=== PATIENT | male | born 1955 | race Caucasian/White ===

== ENCOUNTER 2016-10-03 03:35 | Emergency (ER) | payer OTHER ==
[~2016-10-03] VITALS: Ht 170.2 cm; Wt 77.1 kg
[~2016-10-03 03:35] MED LIST: ALBU6.7H IH; ASPI81TA2 PO; ATOR40TA PO; FLUT1DIS5 IH; LEVO500T15 PO; Valsartan PO
[2016-10-03 05:22] VITALS: BP 130/68
== END 2016-10-03 05:22 | disposition home or self-care (01) ==
LOC: ER 03:38
DX: S13.9XXA Sprain of joints and ligaments of unspecified parts of neck, initial encounter (principal); S33.5XXA Sprain of ligaments of lumbar spine, initial encounter; J44.9 Chronic obstructive pulmonary disease, unspecified; Z79.82 Long term (current) use of aspirin; Z88.0 Allergy status to penicillin; F17.200 Nicotine dependence, unspecified, uncomplicated; W01.0XXA Fall on same level from slipping, tripping and stumbling without subsequent striking against object, initial encounter; Y93.9 Activity, unspecified; Y92.9 Unspecified place or not applicable; Y99.9 Unspecified external cause status
CPT/HCPCS: 72125; 72131; 99284; A4606; Z7610

== ENCOUNTER 2017-02-21 22:45 | Inpatient (IN) | payer OTHER ==
[~2017-02-21] VITALS: Ht 165.1 cm; Wt 77.1 kg
--- NOTE | 2017-02-21 22:55 | NUR ---
To bed 6 a 61 yo male bibself with c/o velia leg swelling and redness. Per patient, he also slipped and fell around 1300 earlier today and he hit his right side of head on the concrete. Per patient his neighbor seen him got knocked out after fall and helped him get up. VSS. No s/s of acute distress. Breathing even and unlabored. Gowned. Initiated comfort measures. Awaiting for er md bolaños.
--- NOTE | 2017-02-21 23:02 | NUR ---
Dr Dowd at bedside.
[2017-02-21] MEDS ORDERED: PANT40TA2 PO (23:14)
[2017-02-21] MEDS ORDERED: ISOS10TA8 PO (23:14)
--- NOTE | 2017-02-21 23:15 | NUR ---
started a saline lock on the left forearm g20, blood drawn and sent to lab.
--- NOTE | 2017-02-21 23:20 | NUR ---
radio personality at bedside for xr.
[2017-02-21 23:25] LABS: BASOPHILS # (AUTO) 0.1 /CMM (0.0-0.2); BASOPHILS % (AUTO) 1.4 % (0.0-2.0); EOSINOPHILS # (AUTO) 0.1 /CMM (0.0-0.7); EOSINOPHILS % (AUTO) 1.2 % (0.0-6.0); HEMATOCRIT 38 % (39-51); HEMOGLOBIN 12.5 g/dL (13.5-17.5); LYMPHOCYTES # (AUTO) 1.7 /CMM (0.8-4.8); MEAN CORPUSCULAR HEMOGLOBIN 31 PG (26.0-33.0); MEAN CORPUSCULAR HGB CONC 33 g/dl (31.0-36.0); MEAN CORPUSCULAR VOLUME 93 fL (80-96); MONOCYTES # (AUTO) 0.6 /CMM (0.1-1.30); MONOCYTES % (AUTO) 9.5 % (2.0-12.0); NEUTROPHILS % (AUTO) 61.9 % (43.0-81.0); PLATELET COUNT (AUTO) 268 /CMM (150-450); RDW COEFFICIENT OF VARIATION 14.1 (11.5-15.0); RED BLOOD CELL COUNT(AUTO) 4.07 MIL/uL (4.5-6.0); WHITE BLOOD COUNT (AUTO) 6.4 K/uL (4.3-11.0)
[2017-02-21 23:37] LABS: CALCIUM, SERUM 9.1 mg/dL (8.5-10.1); POTASSIUM 3.4 mmol/L (3.5-5.1)
[2017-02-21 23:39] LABS: INR 0.95 (0.87-1.13); PROTHROMBIN TIME 10.1 SECS (9.5-12.7)
[2017-02-21 23:45] LABS: TROPONIN I 0.019 ng/mL (0.00-0.056)
--- NOTE | 2017-02-21 23:48 | NUR ---
back from ct
[2017-02-21 23:50] LABS: ALBUMIN 3.7 g/dL (3.4-5.0); BILIRUBIN,DIRECT 0.1 mg/dL (0.0-0.2); BILIRUBIN,TOTAL 0.5 mg/dL (0.2-1.0); TOTAL PROTEIN, SERUM 7.8 g/dL (6.4-8.2)
[2017-02-21] MEDS ORDERED: ACETAMINOPHEN ES 500 MG TABLET ONE (23:56)
[2017-02-21] MEDS ORDERED: SULFAMETH/TRIMETH 800/160 MG 1 UDTAB TABLET PO ONE (23:56)
[2017-02-21] MEDS ORDERED: POTASSIUM CHLORIDE 20 MEQ TAB.PRT.SR PO ONE (23:56)
[2017-02-21] MEDS ORDERED: CEPHALEXIN MONOHYDRATE 500 MG CAPSULE PO ONE (23:56)
[2017-02-22] VITALS (7 sets, daily range): BP systolic 101–135; BP diastolic 54–71
[2017-02-22] MEDS ORDERED: SULFAMETH/TRIMETH 800/160 MG 1 UDTAB TABLET PO ONE
[2017-02-22] MEDS ORDERED: CEPHALEXIN MONOHYDRATE 500 MG CAPSULE PO ONE
[2017-02-22] MEDS ORDERED: ACETAMINOPHEN 325 MG TABLET PO ONE
[2017-02-22] MEDS ORDERED: POTASSIUM CHLORIDE 20 MEQ TAB.PRT.SR PO ONE
--- NOTE | 2017-02-22 01:18 | NUR ---
doppler emmanuel completed.
--- NOTE | 2017-02-22 01:25 | NUR ---
fiscal accountant at bedside to draw repeat troponin.
[2017-02-22] MEDS ORDERED: FUROSEMIDE 20 MG/2 ML VIAL ONE (02:23)
[2017-02-22] MEDS ORDERED: ASPIRIN EC 81 MG TABLET.DR PO ONE (02:23)
[2017-02-22] MEDS ORDERED: FUROSEMIDE 20 MG/2 ML VIAL IV ONE (02:30)
[2017-02-22] MEDS ORDERED: ASPIRIN 325 MG TABLET PO ONE (02:30)
--- NOTE | 2017-02-22 02:30 | NUR ---
DANIS DAN PAGED
[2017-02-22] MEDS ORDERED: Z GUARD REMEDY 2 OZ OINT TP PRN (03:00)
[2017-02-22] MEDS ORDERED: MAGNESIUM HYDROXIDE 30 ML UDC PO PRN (03:00)
[2017-02-22] MEDS ORDERED: ONDANSETRON HCL/PF 4 MG/2 ML VIAL IVP PRN (03:00)
[2017-02-22] MEDS ORDERED: ZOLPIDEM TARTRATE 5 MG TABLET PO PRN (03:00)
[2017-02-22] MEDS ORDERED: ACETAMINOPHEN 325 MG TABLET PO PRN (03:00)
[2017-02-22] MEDS ORDERED: MAG HYDROX/AL HYDROX/SIMETH 30 ML UDC PO PRN (03:00)
--- NOTE | 2017-02-22 03:51 | NUR ---
Report given to Desire WEAVER for tele admission and kourtney.
--- NOTE | 2017-02-22 04:13 | NUR ---
Transported to tele bed via als protocol, no incident noted. VSS.
[2017-02-22] MEDS ORDERED: ISOSORBIDE DINITRATE (10MG) 10 MG TABLET ONE (04:28)
[2017-02-22] MEDS ORDERED: HYDROCODONE/APAP 5/325MG 1 EACH TABLET ONE (04:28)
--- NOTE | 2017-02-22 04:30 | NUR ---
AUTOMOBILE ACCESSORIES SALESPERSONALMOND CUTTING MACHINE TENDER NOTE RECEIVED PT COMING FROM ER VIA GURNEY, PT HAS PAIN LEVEL OF 7/10 ON BLE, WILL PROVIDE PAIN MEDICATION PROMPTLY, NO RESPIRATORY DISTRESS NOTED, PT IS CLEAN/DRY AND COMFORTABLE, AND WOULD LIKE TO GO TO SLEEP IF POSSIBLE, VITAL SIGNS ARE WITHIN NORMAL LIMITS, SAFETY MEASURES WILL BE MAINTAINED AT ALL TIMES, NEEDS WILL BE ANTICIPATED AND ATTENDED TO PROMPTLY.
[2017-02-22] MEDS: HYDROCODONE/APAP 5/325MG 1 EACH TABLET PO PRN ×2 (04:45→20:04)
[2017-02-22] MEDS ORDERED: ISOSORBIDE DINITRATE (10MG) 10 MG TABLET PO SCH (05:00)
--- NOTE | 2017-02-22 06:35 | NUR ---
ASSOCIATE STORE MANAGER CLOSING NOTE PT REMAINED STABLE DURING SCHOOL JANITOR, NO SIGNIFICANT CHANGE IN CONDITION OCCURRED, WILL ENDORSE TO INCOMING NURSE FOR FLORIDALMA.
[2017-02-22 07:10] LABS: BASOPHILS % (AUTO) 0.5 % (0.0-2.0); EOSINOPHILS # (AUTO) 0.1 /CMM (0.0-0.7); EOSINOPHILS % (AUTO) 1.4 % (0.0-6.0); HEMATOCRIT 35 % (39-51); HEMOGLOBIN 11.9 g/dL (13.5-17.5); LYMPHOCYTES # (AUTO) 1.6 /CMM (0.8-4.8); LYMPHOCYTES % (AUTO) 26.6 % (20.0-44.0); MEAN CORPUSCULAR HEMOGLOBIN 32 PG (26.0-33.0); MEAN CORPUSCULAR HGB CONC 34 g/dl (31.0-36.0); MEAN CORPUSCULAR VOLUME 93 fL (80-96); MONOCYTES # (AUTO) 0.7 /CMM (0.1-1.30); MONOCYTES % (AUTO) 11.3 % (2.0-12.0); NEUTROPHILS # (AUTO) 3.6 /CMM (1.8-8.9); NEUTROPHILS % (AUTO) 60.2 % (43.0-81.0); PLATELET COUNT (AUTO) 209 /CMM (150-450); RED BLOOD CELL COUNT(AUTO) 3.75 MIL/uL (4.5-6.0); WHITE BLOOD COUNT (AUTO) 6.1 K/uL (4.3-11.0)
--- NOTE | 2017-02-22 07:30 | NUR ---
RECEIVED PT IN BED.NO C/O PAIN,NO S/S OF DISTRESS.I.V SITE CDI AND PATENT.SAFETY MEASURES IN PLACE .BED IN LOW AND LOCKED POSITION.WILL CONTINUE TO MONITOR FOR CHANGES.
[2017-02-22 07:34] LABS: CALCIUM, SERUM 8.8 mg/dL (8.5-10.1); CREATININE 0.9 mg/dL (0.6-1.3); MAGNESIUM 1.9 mg/dL (1.8-2.4); PHOSPHORUS 3.1 mg/dL (2.5-4.9); POTASSIUM 4.2 mmol/L (3.5-5.1)
[2017-02-22] MEDS ORDERED: FEE PK DOSING 1 MIN EA MC ONE (08:31)
[2017-02-22] MEDS ORDERED: SECONDARY IV SET 1 EA INFUS.SET MC ONE ×2 (08:44→19:56)
[2017-02-22] MEDS ORDERED: IV SET PRIMARY PUMP SET 1 EA INFUS.SET MC ONE (08:47)
[2017-02-22] MEDS ORDERED: IPRATROPIUM NEB FS 0.5 MG/2.5 ML AMPUL.NEB ONE (08:48)
[2017-02-22] MEDS ORDERED: IV NS 0.9% 250 ML IV ONE (08:48)
[2017-02-22] MEDS: ASPIRIN 81 MG TAB.CHEW PO SCH (08:57)
[2017-02-22] MEDS: VALSARTAN 80 MG TABLET PO SCH (08:58)
[2017-02-22] MEDS: PANTOPRAZOLE 40 MG TABLET.DR PO SCH (08:58)
[2017-02-22] MEDS: VANCOMYCIN 1 GM in IV D5W 250 ML IV SCH ×2 (08:59→20:04)
[2017-02-22] MEDS ORDERED: FLUTICASONE/SALMETEROL DISKUS IH SCH (09:00)
[2017-02-22] MEDS ORDERED: ALBUTEROL FS 2.5 MG/3 ML VIAL.NEB NEB PRN (13:30)
[2017-02-22] MEDS: FLUTICASONE/SALMETEROL DISKUS IH SCH (17:00)
[2017-02-22] MEDS: IV NS 0.9% 1,000 ML IV PRN (19:26)
--- NOTE | 2017-02-22 19:30 | NUR ---
MS RN INITIAL NOTES RECEIVED PATIENT AWAKE, A/OX3, ABLE TO MAKE NEEDS KNOWN. C/O 810 BACK AND BLE PAIN. DENIES SOB. RESPIRATIONS EVEN AND UNLABORED, ON ROOM AIR. SKIN WARM AND DRY TO TOUCH. WITH IVF RUNNING. HOB ELEVATED. SIDE RAILS UP AND LOCKED. BED KEPT AT LOWEST POSITION. CALL LIGHT KEPT WITHIN EASY REACH. WILL CONTINUE TO MONITOR.
--- NOTE | 2017-02-22 19:35 | NUR ---
all [facility] once cleared for patients safety
[2017-02-22] MEDS: ATORVASTATIN 40 MG TABLET PO SCH (21:33)
[2017-02-23 04:00] VITALS: BP 115/72
[2017-02-23] MEDS: IV NS 0.9% 1,000 ML IV PRN (04:32)
--- NOTE | 2017-02-23 07:17 | NUR ---
MS RN CLOSING NOTES NO SIGNIFICANT CHANGES OVERNIGHT. ALL NEEDS ANTICIPATED AND MET. NO RESPIRATORY DISTRESS NOTED ON ROOM AIR. SKIN WARM AND DRY TO TOUCH. REFUSED LINEN CHANGE AND BED BATH. USES URINAL NEEDED. IVF RUNNING. SIDE RAILS UP AND LOCKED. BED KEPT AT LOWEST POSITION. HOB ELEVATED. CALL LIGHT KEPT WITHIN EASY REACH. WILL ENDORSE CONTINUITY OF CARE TO AM NURSE.
--- NOTE | 2017-02-23 07:18 | NUR ---
RN INITIAL NOTES: Rec'd pt asleep on bed, arousable, A/O x3, not in any distress. Pt on room air, saturating at 96%, denies SOB. Pt has LFA G20 PL, patent & intact w/ no signs of infection/ infiltration noted w/ NS 1L x 125 cc/hr (2nd bag) infusing well. Provided comfort & safety measures. Call light placed w/in reach. Bed kept low & in locked position. Needs attended. Will continue to monitor.
[2017-02-23 07:39] LABS: CALCIUM, SERUM 8.7 mg/dL (8.5-10.1); POTASSIUM 3.7 mmol/L (3.5-5.1)
[2017-02-23 08:00] VITALS: BP 147/79
--- NOTE | 2017-02-23 08:00 | NUR ---
RN NOTES: Orthostatic BP taken on R arm: while lying = 147/79, sitting = 139/80, standing = 135/81.
[2017-02-23] MEDS: FLUTICASONE/SALMETEROL DISKUS IH SCH ×2 (08:27→17:41)
[2017-02-23] MEDS: VANCOMYCIN 1 GM in IV D5W 250 ML IV SCH ×2 (08:27→21:01)
[2017-02-23] MEDS: ASPIRIN 81 MG TAB.CHEW PO SCH (08:28)
[2017-02-23] MEDS: VALSARTAN 80 MG TABLET PO SCH (08:28)
[2017-02-23] MEDS: PANTOPRAZOLE 40 MG TABLET.DR PO SCH (08:29)
[2017-02-23] MEDS ORDERED: IV NS 0.9% 1,000 ML IV PRN (11:45)
[2017-02-23] MEDS ORDERED: POTASSIUM CHLORIDE 20 MEQ TAB.PRT.SR PO SCH (12:00)
[2017-02-23 16:00] VITALS: BP 115/55
[2017-02-23] MEDS ORDERED: IV NS 0.9% 250 ML IV ONE ×2 (17:34→20:17)
[2017-02-23] MEDS: HYDROCODONE/APAP 5/325MG 1 EACH TABLET PO PRN (17:44)
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
--- NOTE | 2017-02-23 19:32 | NUR ---
RN CLOSING NOTES: No acute changes noted w/in shift. LFA G20 SL kept patent & intact w/ no signs of infection/ infiltration noted. Kept well rested. Pain meds given. Needs attended. Call light placed w/in reach. Bed kept low & in locked position. Endorsed to PM RN for FLORIDALMA.
--- NOTE | 2017-02-23 19:45 | NUR ---
RECEIVED NEW ORDER FROM DR. MOHAMUD MORPHINE 2MG IV Q4H PRN FOR SEVERE PAIN, NOTED AND CARRIED OUT.
[2017-02-23 20:00] VITALS: BP 117/70
[2017-02-23 20:14] VITALS: BP 117/70
[2017-02-23] MEDS: MORPHINE SULFATE INJ 2 MG/ML DISP.SYRIN IV PRN (21:01)
[2017-02-23] MEDS: ATORVASTATIN 40 MG TABLET PO SCH (21:02)
[2017-02-24] MEDS: MORPHINE SULFATE INJ 2 MG/ML DISP.SYRIN IV PRN ×5 (03:34→21:39)
[2017-02-24 04:00] VITALS: BP 112/60
--- NOTE | 2017-02-24 06:55 | NUR ---
MS RN CLOSING NOTES NO SIGNIFICANT CHANGES OVERNIGHT. ALL NEEDS ANTICIPATED AND MET. PAIN MANAGED NEEDED. REFUSED LINEN CHANGE AND AM CARE. DENIES SOB. SKIN WARM AND DRY TO TOUCH. HOB ELEVATED. SIDE RAILS UP AND LOCKED. CALL LIGHT KEPT WITHIN EASY REACH. WILL ENDORSE CONTINUITY OF CARE TO AM NURSE.
--- NOTE | 2017-02-24 07:25 | NUR ---
RN INITIAL NOTES: Rec'd pt awake on bed, A/O x3, not in any distress. Pt on room air, saturating at 96%, denies SOB. Pt has LFA G20 PL, patent & intact w/ no signs of infection/ infiltration. Provided comfort & safety measures. Call light placed w/in reach. Bed kept low & in locked position. Needs attended. Will continue to monitor.
[2017-02-24 08:00] VITALS: BP 116/63
[2017-02-24] MEDS: ASPIRIN 81 MG TAB.CHEW PO SCH (08:19)
[2017-02-24] MEDS: VANCOMYCIN 1 GM in IV D5W 250 ML IV SCH ×2 (08:19→21:25)
[2017-02-24] MEDS: VALSARTAN 80 MG TABLET PO SCH (08:20)
[2017-02-24] MEDS: FLUTICASONE/SALMETEROL DISKUS IH SCH ×2 (08:20→17:38)
[2017-02-24] MEDS: PANTOPRAZOLE 40 MG TABLET.DR PO SCH (08:20)
[2017-02-24 09:20] LABS: CALCIUM, SERUM 8.9 mg/dL (8.5-10.1); CREATININE 0.9 mg/dL (0.6-1.3); POTASSIUM 3.8 mmol/L (3.5-5.1)
[2017-02-24 16:00] VITALS: BP 111/66
--- NOTE | 2017-02-24 19:02 | NUR ---
RN CLOSING NOTES: No acute changes noted w/in shift. LFA G20 SL kept patent & intact w/ no signs of infection/ infiltration noted. Kept well rested. Pain meds given. Needs attended. Call light placed w/in reach. Bed kept low & in locked position. Will endorse to PM RN for FLORIDALMA.
--- NOTE | 2017-02-24 19:30 | NUR ---
MS RN INITIAL NOTES RECEIVED PATIENT ASLEEP, NO S/S OF PAIN OR DISCOMFORT. RESPIRATIONS EVEN AND UNLABORED. SKIN WARM AND DRY TO TOUCH. HOB ELEVATED. SIDE RAILS UP AND LOCKED. BED KEPT AT LOWEST POSITION. CALL LIGHT KEPT WITHIN EASY REACH. WILL CONTINUE TO MONITOR.
[2017-02-24 20:00] VITALS: BP 104/63
--- NOTE | 2017-02-24 20:00 | NUR ---
RN NOTES RECEIVED PT SLEEPING BUT AROUSABLE, NO PAIN NOTED, NO SOB, CALL LIGHT WITHIN REACH, SIDERAILS UPX2 CONTINUE TO MONITOR
--- NOTE | 2017-02-24 20:20 | NUR ---
CONTINUITY OF CARE ENDORSED TO ESTEFANÍA
[2017-02-24] MEDS ORDERED: IV NS 0.9% 250 ML IV ONE (21:22)
[2017-02-24] MEDS: ATORVASTATIN 40 MG TABLET PO SCH (21:25)
--- NOTE | 2017-02-24 21:41 | NUR ---
RN NOTES COMPLAINED OF BILATERAL LOWER EXTREMITIES PAIN- MORPHINE 2 MG IV GIVEN ORDERED, V/S STABLE
[2017-02-25] MEDS: MORPHINE SULFATE INJ 2 MG/ML DISP.SYRIN IV PRN ×3 (02:56→11:05)
--- NOTE | 2017-02-25 02:58 | NUR ---
RN NOTES COMPLAINED OF BILATERAL LOWER EXTREMITIES PAIN- MORPHINE 2MG IV GIVEN ORDERED, V/S STABLE
--- NOTE | 2017-02-25 06:30 | NUR ---
RN NOTES SLEEPING BUT AROUSABLE, DENIES PAIN, NO SOB, MORNING CARE RENDERED, PT NEEDS ATTENDED
--- NOTE | 2017-02-25 07:02 | NUR ---
RN NOTES COMPLAINED OF BILATERAL LOWER EXTREMITIRES- MORPHINE 2 MG IV GIVEN ORDERED, V/S STABLE
[2017-02-25 08:00] VITALS: BP 129/75
[2017-02-25 08:10] LABS: CREATININE 0.9 mg/dL (0.6-1.3); POTASSIUM 3.9 mmol/L (3.5-5.1)
[2017-02-25] MEDS: ASPIRIN 81 MG TAB.CHEW PO SCH (09:18)
[2017-02-25] MEDS: VANCOMYCIN 1 GM in IV D5W 250 ML IV SCH (09:18)
[2017-02-25] MEDS: PANTOPRAZOLE 40 MG TABLET.DR PO SCH (09:18)
[2017-02-25 09:19] VITALS: BP 129/75
[2017-02-25] MEDS: VALSARTAN 80 MG TABLET PO SCH (09:19)
[2017-02-25] MEDS: FLUTICASONE/SALMETEROL DISKUS IH SCH (09:20)
[2017-02-25] MEDS ORDERED: SULF1TAB48 PO (13:11)
--- NOTE | 2017-02-25 15:45 | NUR ---
YANELIS and counter caser Stevan met with pt. bedside to discuss discharge plan. Pt. states he resides at [address] [place] [address] in [place] and will take a bus to get to his home once medically cleared for discharge. Taxi transportation was offered to pt, however, pt. declined stating he has a bus pass and will take the bus home. No resources were requested/ needed at this time.
--- NOTE | 2017-02-25 16:24 | NUR ---
PATIENT DISCHARGED AT THIS TIME.PATIENT IS STABLE.ALL DUE MEDS WELL NURSING CARE GIVEN AND WELL TOLERATED.NO RESPIRATORY DISTRESS NOTED AT TIME OF DISCHARGE NEITHER ANY PAIN NOTED.PATIENT DISCHARGED
== END 2017-02-25 15:50 | disposition home or self-care (01) | DRG 48 ==
LOC: ER 22:48 → TELE1 02-22 03:12 → MEDSG1 02-22 10:48
PROVIDERS: ADMIT Family Medicine; ATTEND Family Medicine
DX: G90.8 Other disorders of autonomic nervous system (principal); S09.90XA Unspecified injury of head, initial encounter; I11.0 Hypertensive heart disease with heart failure; I50.32 Chronic diastolic (congestive) heart failure; I48.0 Paroxysmal atrial fibrillation; R00.1 Bradycardia, unspecified; J44.9 Chronic obstructive pulmonary disease, unspecified; I25.10 Atherosclerotic heart disease of native coronary artery without angina pectoris; F17.210 Nicotine dependence, cigarettes, uncomplicated; Z95.5 Presence of coronary angioplasty implant and graft; E78.5 Hyperlipidemia, unspecified; X58.XXXA Exposure to other specified factors, initial encounter; Y93.9 Activity, unspecified; Y92.89 Other specified places as the place of occurrence of the external cause
CPT/HCPCS: 36415; 70450-TC; 71010-TC; 72125-TC; 72170-TC; 73590-TC; 80048-TC; 80076-TC; 80202-TC; 83735-TC; 83880; 84100-TC; 84484-TC; 85025-TC; 85730-TC; 87081-TC; 93307-TC; 93970-TC; 97001-TC; 97003-TC; A4606; J1940; J2270; J3370; J7030; J7050; J7060; Z7610

== ENCOUNTER 2017-04-10 22:33 | Emergency (ER) | payer MEDICAID, OTHER ==
[~2017-04-10] VITALS: Ht 170.2 cm; Wt 79.4 kg
[~2017-04-10 22:33] MED LIST changes: +ISOS10TA8 PO; +PANT40TA2 PO; +SULF1TAB48 PO
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
[2017-04-10] MEDS ORDERED: IPRATROPIUM NEB FS 0.5 MG/2.5 ML AMPUL.NEB ONE (23:42)
[2017-04-10] MEDS ORDERED: ALBUTEROL FS 2.5 MG/3 ML VIAL.NEB ONE (23:42)
[2017-04-11] MEDS ORDERED: ALBUTEROL FS 2.5 MG/3 ML VIAL.NEB NEB ONE
[2017-04-11] MEDS ORDERED: IPRATROPIUM NEB FS 0.5 MG/2.5 ML AMPUL.NEB NEB ONE
--- NOTE | 2017-04-11 06:04 | NUR ---
Patient discharged to home in stable condition. Written and verbal after care instructions given. Patient verbalizes understanding of instruction. Pt ambulatory with a steady gait.
[2017-04-11 06:08] VITALS: BP 132/88
== END 2017-04-11 06:05 | disposition home or self-care (01) ==
LOC: ER 22:33
DX: S00.31XA Abrasion of nose, initial encounter (principal); J44.9 Chronic obstructive pulmonary disease, unspecified; Z79.82 Long term (current) use of aspirin; Z88.0 Allergy status to penicillin; Z95.5 Presence of coronary angioplasty implant and graft; Z88.8 Allergy status to other drugs, medicaments and biological substances; Z91.012 Allergy to eggs; Y04.0XXA Assault by unarmed brawl or fight, initial encounter; Y92.89 Other specified places as the place of occurrence of the external cause; Y93.89 Activity, other specified; Y99.8 Other external cause status
CPT/HCPCS: 94640; 99283; A4606; A6402; Z7610

== ENCOUNTER 2018-01-03 14:30 | Emergency (ER) | payer MEDICAID, OTHER ==
[~2018-01-03] VITALS: Ht 160 cm; Wt 74.8 kg
[~2018-01-03 14:30] MED LIST changes: +ASPI-1169 PO; -ASPI81TA2 PO; -LEVO500T15 PO; +LEVO500T75 PO
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
--- NOTE | 2018-01-03 14:55 | NUR ---
NEW IV STARTED ON RFA, 20G. BLOOD DRAWN AND SENT TO LAB.
[2018-01-03] MEDS: IV NS 0.9% 500 ML BAG IV ONE (15:00)
[2018-01-03 15:03] LABS: BASOPHILS % (AUTO) 0.4 % (0.0-2.0); HEMATOCRIT 32 % (39-51); HEMOGLOBIN 10.9 g/dL (13.5-17.5); LYMPHOCYTES # (AUTO) 1.5 /CMM (0.8-4.8); LYMPHOCYTES % (AUTO) 22.6 % (20.0-44.0); MEAN CORPUSCULAR HGB CONC 35 g/dl (31.0-36.0); MEAN CORPUSCULAR VOLUME 94 fL (80-96); MONOCYTES # (AUTO) 0.7 /CMM (0.1-1.30); MONOCYTES % (AUTO) 10.7 % (2.0-12.0); NEUTROPHILS # (AUTO) 4.3 /CMM (1.8-8.9); NEUTROPHILS % (AUTO) 65.3 % (43.0-81.0); PLATELET COUNT (AUTO) 270 /CMM (150-450); RDW COEFFICIENT OF VARIATION 14.2 (11.5-15.0); RED BLOOD CELL COUNT(AUTO) 3.36 MIL/uL (4.5-6.0); WHITE BLOOD COUNT (AUTO) 6.6 K/uL (4.3-11.0)
[2018-01-03 15:19] LABS: CALCIUM, SERUM 8.7 mg/dL (8.5-10.1); CARBON DIOXIDE 31 mmol/L (21-32); CHLORIDE 105 mmol/L (98-107); CREATININE 0.9 mg/dL (0.6-1.3); GLUCOSE 112 mg/dL (74-106); POTASSIUM 3.5 mmol/L (3.5-5.1); SODIUM SERUM 142 mmol/L (136-145); UREA NITROGEN, BLOOD 12 mg/dL (7-18)
[2018-01-03 15:22] LABS: INR 0.97 (0.85-1.15)
[2018-01-03 15:23] LABS: ALANINE AMINOTRANSFERASE 18 U/L (12-78); ALBUMIN 3.3 g/dL (3.4-5.0); ALKALINE PHOSPHATASE 117 U/L (46-116); ASPARTATE AMINOTRANSFERASE 15 U/L (15-37); BILIRUBIN,DIRECT 0.1 mg/dL (0.0-0.2); BILIRUBIN,TOTAL 0.4 mg/dL (0.2-1.0); TOTAL PROTEIN, SERUM 6.8 g/dL (6.4-8.2)
[2018-01-03 15:26] LABS: TROPONIN I < 0.017 ng/mL (0.00-0.056)
[2018-01-03] MEDS ORDERED: ALBUTEROL FS 2.5 MG/3 ML VIAL.NEB ONE (16:03)
[2018-01-03] MEDS ORDERED: IPRATROPIUM NEB FS 0.5 MG/2.5 ML AMPUL.NEB ONE (16:03)
--- NOTE | 2018-01-03 16:05 | NUR ---
PATIENT TAKEN TO CT VIA STRETCHER.
[2018-01-03] MEDS: ALBUTEROL FS 2.5 MG/3 ML VIAL.NEB NEB ONE (16:08)
[2018-01-03] MEDS: IPRATROPIUM NEB FS 0.5 MG/2.5 ML AMPUL.NEB NEB ONE (16:08)
--- NOTE | 2018-01-03 16:17 | NUR ---
PATIENT RETURNED FROM CT IN STABLE CONDITION.
--- NOTE | 2018-01-03 17:45 | NUR ---
IV removed. Catheter intact and site benign. Pressure and 4x4 applied to site. No bleeding noted. Patient discharged to home in stable condition. Written and verbal after care instructions given. Patient verbalizes understanding of instruction.
[2018-01-03 17:48] VITALS: BP 132/88
== END 2018-01-03 17:45 | disposition home or self-care (01) ==
LOC: ER 14:32
DX: R42 Dizziness and giddiness (principal); I11.0 Hypertensive heart disease with heart failure; I50.9 Heart failure, unspecified; J44.9 Chronic obstructive pulmonary disease, unspecified; F17.200 Nicotine dependence, unspecified, uncomplicated; Z79.82 Long term (current) use of aspirin; Z88.0 Allergy status to penicillin; Z95.5 Presence of coronary angioplasty implant and graft; Z88.8 Allergy status to other drugs, medicaments and biological substances; Z91.012 Allergy to eggs
CPT/HCPCS: 36415; 70450-TC; 71045-TC; 80048-TC; 80076-TC; 84484-TC; 85025-TC; 85730-TC; A4606; J7040; Z7610

== ENCOUNTER 2018-11-04 04:20 | Emergency (ER) | payer MEDICARE, OTHER ==
[~2018-11-04] VITALS: Ht 170.2 cm; Wt 77.1 kg
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
--- NOTE | 2018-11-04 04:52 | NUR ---
PT TO BE PICKED UP BY RADIOLOGY FOR CT HEAD WCONTRST AND CT CERVICAL SPINAL WO.
--- NOTE | 2018-11-04 05:10 | NUR ---
PT TAKEN FOT CT.
--- NOTE | 2018-11-04 05:20 | NUR ---
PT BACK FROM CT.
--- NOTE | 2018-11-04 06:11 | NUR ---
Ct cervical neck and ct head all - PT cleared by MD GARZA. Patient dc to home in stable condition. Written and verbal after care instructions given. Patient verbalizes understanding of instruction.
[2018-11-04 06:16] VITALS: BP 112/78
== END 2018-11-04 06:18 | disposition home or self-care (01) ==
LOC: ER 04:20
DX: R51 Headache (principal); M54.2 Cervicalgia; M25.562 Pain in left knee; M25.561 Pain in right knee; I25.10 Atherosclerotic heart disease of native coronary artery without angina pectoris; I11.0 Hypertensive heart disease with heart failure; I50.9 Heart failure, unspecified; E78.5 Hyperlipidemia, unspecified; J44.9 Chronic obstructive pulmonary disease, unspecified; G89.29 Other chronic pain; M54.5 Low back pain; F17.200 Nicotine dependence, unspecified, uncomplicated; Z95.5 Presence of coronary angioplasty implant and graft; Z88.0 Allergy status to penicillin; Z88.6 Allergy status to analgesic agent; Z91.012 Allergy to eggs; Z60.2 Problems related to living alone; Z79.82 Long term (current) use of aspirin
CPT/HCPCS: 70450; 72125; 99284; A4606

== ENCOUNTER 2020-02-20 02:20 | Emergency (ER) | payer MEDICARE, OTHER ==
[~2020-02-20] VITALS: Ht 170.2 cm; Wt 79.4 kg
[~2020-02-20 02:20] MED LIST changes: -ALBU6.7H IH; +ALBU6.7H9 IH
--- NOTE | 2020-02-20 02:43 | NUR ---
XRAY AT BEDSIDE
[2020-02-20] MEDS ORDERED: TRAMADOL HCL 50 MG TABLET ONE (02:44)
[2020-02-20] MEDS ORDERED: TRAMADOL HCL 50 MG TABLET PO ONE (03:00)
--- NOTE | 2020-02-20 05:47 | NUR ---
PER DR LOPEZ, PT NEEDS TO BE SEEN BY A LINUX SECURITY ADMINISTRATOR
--- NOTE | 2020-02-20 08:35 | NUR ---
WOOD SCIENCE PROFESSOR was informed by ED CRLorenza Kim to evaluate the pt per doctor's request. Per chart review, pt is a 64-year-old male who brought himself to the ED complaining of knee pain. WOOD SCIENCE PROFESSOR conducted chart review and met with the pt bedside. WOOD SCIENCE PROFESSOR introduced self, and purpose of the visit. Pt is alert and oriented x 4. Pt is cooperative with SW during the assessment. Pt reports he lives in a house with three roommates located at [address] [place] [address] in [facility]. Pt ambulates with a cane. However, WOOD SCIENCE PROFESSOR requested for a walker for the pt to be discharged home with. Pt receives SSI per month. Pt denies any psychiatric illnesses and hospitalizations. Pt denies SI/HI. Pt denies history of substance abuse and /or use. Pt states, he is able to transport himself back home. WOOD SCIENCE PROFESSOR provided active listening and validation of feelings. WOOD SCIENCE PROFESSOR updated pt's RN and KENISHA Kim regarding pt's disposition. City Clerk to remain available for support as needed.
--- NOTE | 2020-02-20 09:29 | NUR ---
PATIENT A/OX3, GIVEN A WALKER. WAITING FOR TAXI. Written and verbal after care instructions given. Patient verbalizes understanding of instruction.
--- NOTE | 2020-02-20 09:36 | NUR ---
Patient discharged to home in stable condition. Written and verbal after care instructions given. Patient verbalizes understanding of instruction. Taxi voucher provided.
[2020-02-20 09:40] VITALS: BP 135/82
[2020-02-20] MEDS ORDERED: DULO30CA52 PO (13:51)
[2020-02-20] MEDS ORDERED: MIDO5TAB4 PO (13:51)
[2020-02-20] MEDS ORDERED: CARB1TAB21 PO (13:51)
[2020-02-20] MEDS ORDERED: ASPI-1152 PO (13:51)
[2020-02-20] MEDS ORDERED: ALBU18HF2 INH (13:51)
[2020-02-20] MEDS ORDERED: FURO20TA4 PO (13:51)
[2020-02-20] MEDS ORDERED: METO25TA4 PO (13:51)
[2020-02-20] MEDS ORDERED: CLOP75TA15 PO (13:51)
== END 2020-02-20 09:40 | disposition home or self-care (01) ==
LOC: ER 02:21
DX: M25.562 Pain in left knee (principal); I11.0 Hypertensive heart disease with heart failure; I50.9 Heart failure, unspecified; J45.909 Unspecified asthma, uncomplicated; F17.200 Nicotine dependence, unspecified, uncomplicated; Z98.890 Other specified postprocedural states; Z88.0 Allergy status to penicillin; Z88.8 Allergy status to other drugs, medicaments and biological substances; Z91.012 Allergy to eggs; Z91.018 Allergy to other foods; Z60.2 Problems related to living alone; Z79.899 Other long term (current) drug therapy; Z79.82 Long term (current) use of aspirin; W19.XXXA Unspecified fall, initial encounter; Y93.89 Activity, other specified; Y92.89 Other specified places as the place of occurrence of the external cause; Y99.8 Other external cause status
CPT/HCPCS: 73564-TC

== ENCOUNTER 2020-02-20 12:44 | Inpatient (IN) | payer MEDICARE, OTHER ==
[~2020-02-20] VITALS: Ht 170.2 cm; Wt 79.4 kg
[2020-02-20] MEDS ORDERED: IV NS 0.9% 1,000 ML BAG IV ONE (13:30)
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
[2020-02-20 13:42] LABS: BASOPHILS # (AUTO) 0.1 /CMM (0.0-0.2); BASOPHILS % (AUTO) 0.8 % (0.0-2.0); EOSINOPHILS % (AUTO) 0.2 % (0.0-6.0); HEMATOCRIT 38 % (39-51); HEMOGLOBIN 12.4 g/dL (13.5-17.5); LYMPHOCYTES % (AUTO) 10.3 % (20.0-44.0); MEAN CORPUSCULAR HGB CONC 33 g/dl (31.0-36.0); MEAN CORPUSCULAR VOLUME 88 fL (80-96); MONOCYTES # (AUTO) 0.9 /CMM (0.1-1.30); MONOCYTES % (AUTO) 9.2 % (2.0-12.0); NEUTROPHILS # (AUTO) 7.9 /CMM (1.8-8.9); NEUTROPHILS % (AUTO) 79.5 % (43.0-81.0); PLATELET COUNT (AUTO) 230 /CMM (150-450); WHITE BLOOD COUNT (AUTO) 9.9 K/uL (4.3-11.0)
[2020-02-20] MEDS ORDERED: CLOP75TA15 PO (13:51)
[2020-02-20] MEDS ORDERED: CARB1TAB21 PO (13:51)
[2020-02-20] MEDS ORDERED: DULO30CA52 PO (13:51)
[2020-02-20] MEDS ORDERED: ALBU18HF2 INH (13:51)
[2020-02-20] MEDS ORDERED: ASPI-1152 PO (13:51)
[2020-02-20] MEDS ORDERED: FURO20TA4 PO (13:51)
[2020-02-20] MEDS ORDERED: METO25TA4 PO (13:51)
[2020-02-20] MEDS ORDERED: MIDO5TAB4 PO (13:51)
[2020-02-20 13:53] LABS: CALCIUM, SERUM 9.9 mg/dL (8.5-10.1); CARBON DIOXIDE 30 mmol/L (21-32); CHLORIDE 103 mmol/L (98-107); CREATININE 1.3 mg/dL (0.6-1.3); GLUCOSE 116 mg/dL (74-106); POTASSIUM 4.4 mmol/L (3.5-5.1); SODIUM SERUM 140 mmol/L (136-145); UREA NITROGEN, BLOOD 35 mg/dL (7-18)
[2020-02-20 14:04] LABS: ALANINE AMINOTRANSFERASE 31 U/L (12-78); ALBUMIN 4.3 g/dL (3.4-5.0); ALKALINE PHOSPHATASE 193 U/L (46-116); ASPARTATE AMINOTRANSFERASE 19 U/L (15-37); BILIRUBIN,DIRECT 0.1 mg/dL (0.0-0.2); BILIRUBIN,TOTAL 0.6 mg/dL (0.2-1.0); TOTAL PROTEIN, SERUM 8.3 g/dL (6.4-8.2)
--- NOTE | 2020-02-20 14:05 | NUR ---
SPOKE TO MEG TINOCO IN [place]. I WILL CALL BACK FOR REPORT IN 5 MINS.
--- NOTE | 2020-02-20 14:05 | NUR ---
PT APPEARS TO BE RESTING COMFORTABLY.
--- NOTE | 2020-02-20 14:40 | NUR ---
CALLING REPORT TO MEG TINOCO
--- NOTE | 2020-02-20 14:47 | NUR ---
REPORT GIVEN TO MEG TINOCO
[2020-02-20 16:15] VITALS: BP 136/81
--- NOTE | 2020-02-20 16:15 | NUR ---
STRATEGY PLANNING CONSULTANT NOTES RECEIVED PT VIA SALMA BROUGHT IN FROM ER. WITH ADMITTING DX OF WEAKNESS AND L LEG PAIN. PT IS AOX3. MALE. NO CARDIAC OR RESP DISTRESS NOTED. NO SOB NOTED. SATURATING WELL ON ROOM AIR. VS CHECKED NOTED AT T-97.7, P- 85, RR-18, O2 SAT-97% ON ROOM AIR BP- 136/81. BODUY CHECK DONE. PICTURES TAKEN AND PLACED IN THE CHART. IV ACCESS NOTED ON L AC G18. INTACT AND PATENT AND FLUSHING WELL. NO S/S OF INFECTION OR INFILTRATION. PT WAS ALSO NOTED WITH A BRACE ON THE L LOWER EXT. SAFETY PRECAUTIONS IN PLACE. BED LOCKED AND IN LOW POSITION. SIDE RAILS UP X2. BED ALARM ON. CALL LIGHT WITHIN REACH.
[2020-02-20] MEDS ORDERED: ZOLPIDEM TARTRATE 5 MG TABLET PO PRN (16:30)
[2020-02-20] MEDS ORDERED: ACETAMINOPHEN 325 MG TABLET PO PRN (16:30)
[2020-02-20] MEDS ORDERED: MAGNESIUM HYDROXIDE 30 ML UDC PO PRN (16:30)
[2020-02-20] MEDS ORDERED: Z GUARD REMEDY 2 OZ OINT TP PRN (16:30)
[2020-02-20] MEDS ORDERED: MAG HYDROX/AL HYDROX/SIMETH 30 ML UDC PO PRN (16:30)
[2020-02-20] MEDS ORDERED: ONDANSETRON HCL/PF 4 MG/2 ML VIAL IVP PRN (16:30)
--- NOTE | 2020-02-20 16:30 | NUR ---
NOTIFIED MD DR. NORRIS NOTIFIED OF ADMISSION, PER DR. NORRIS HE WILL PUT IN ORDERS.
[2020-02-20] MEDS: CARBIDOPA/LEVODOPA 25/100 MG 1 UDTAB PO SCH (17:22)
[2020-02-20] MEDS: ENOXAPARIN SODIUM 40 MG/0.4 ML DISP.SYRIN SQ SCH (17:29)
[2020-02-20] MEDS: HYDROCODONE/APAP 10/325MG 1 EA TABLET PO PRN ×2 (17:41→22:55)
--- NOTE | 2020-02-20 19:15 | NUR ---
MS RN CLOSING NOTES RPT IN BED AWAKE ALERT AND ORIENTED X3 . NO CARDIAC OR RESP DISTRESS NOTED. NO SOB NOTED. SATURATING WELL ON ROOM AIR. IV ACCESS NOTED ON L AC G18. INTACT AND PATENT AND FLUSHING WELL. NO S/S OF INFECTION OR INFILTRATION. PT WAS ALSO NOTED WITH A BRACE ON THE L LOWER EXT. SAFETY PRECAUTIONS IN PLACE. BED LOCKED AND IN LOW POSITION. SIDE RAILS UP X2. BED ALARM ON. CALL LIGHT WITHIN REACH.
--- NOTE | 2020-02-20 19:55 | NUR ---
RN OPENING NOTES RECEIVED REPORT FROM AGAPITO RNMAHENDRA. FOUND Pt AWAKE, RESTING IN BED, WATCHING TV. NO S/S OF ACUTE DISTRESS OR SOB NOTED. Pt IS A/OX4, VERBAL, ABLE TO MAKE NEEDS KNOWN. IV ACCESS ON LAC #18G, SL. SAFETY MEASURES IN PLACE. BED LOW, LOCKED, HOB ELEVATED, SIDE RAILS UP, CALL LIGHT AND BEDSIDE TABLE WITHIN REACH. BED ALARM ON. WILL CONTINUE TO MONITOR Pt's CONDITION AND SAFETY THROUGHOUT THE NIGHT.
[2020-02-20 20:00] VITALS: BP 126/66
[2020-02-20 21:00] VITALS: BP 126/66
[2020-02-20] MEDS: ATORVASTATIN 40 MG TABLET PO SCH (22:35)
[2020-02-21] MEDS: HYDROCODONE/APAP 10/325MG 1 EA TABLET PO PRN ×2 (04:48→10:06)
[2020-02-21 06:32] LABS: BASOPHILS % (AUTO) 0.7 % (0.0-2.0); EOSINOPHILS % (AUTO) 1.2 % (0.0-6.0); HEMATOCRIT 34 % (39-51); HEMOGLOBIN 11.2 g/dL (13.5-17.5); LYMPHOCYTES # (AUTO) 1.6 /CMM (0.8-4.8); LYMPHOCYTES % (AUTO) 26.9 % (20.0-44.0); MEAN CORPUSCULAR HGB CONC 33 g/dl (31.0-36.0); MEAN CORPUSCULAR VOLUME 89 fL (80-96); MONOCYTES # (AUTO) 0.9 /CMM (0.1-1.30); MONOCYTES % (AUTO) 15.4 % (2.0-12.0); NEUTROPHILS # (AUTO) 3.4 /CMM (1.8-8.9); NEUTROPHILS % (AUTO) 55.8 % (43.0-81.0); PLATELET COUNT (AUTO) 242 /CMM (150-450); RED BLOOD CELL COUNT(AUTO) 3.88 MIL/uL (4.5-6.0)
--- NOTE | 2020-02-21 07:37 | NUR ---
MS RN OPENING NOTE PATIENT IN BED RESTING COMFORTABLY. PATIENT IN NO ACUTE DISTRESS. NO SOB NOTED. PATIENT BREATHING IS EVEN AND UNLABORED. SAFETY PRECAUTIONS IN PLACE. PATIENT BED IS LOCKED AND IN LOWEST POSITION. BED ALARM IS ON. CALL LIGHT WITHIN REACH. WILL CONTINUE TO MONITOR.
--- NOTE | 2020-02-21 07:43 | NUR ---
RN CLOSING NOTES NO SIGNIFICANT CHANGES IN Pt's CONDITION. Pt REMAINED STABLE PER BASELINE. NO S/S OF ACUTE DISTRESS OR SOB NOTED DURING THE NIGHT. ALL NEEDS MET AND ATTENDED TO. SAFETY MEASURES IN PLACE. ENDORSED TO DAYSHIFT RN FOR Pt's FLORIDALMA.
[2020-02-21 08:05] LABS: CALCIUM, SERUM 9.5 mg/dL (8.5-10.1); MAGNESIUM 2.2 mg/dL (1.8-2.4); PHOSPHORUS 3.5 mg/dL (2.5-4.9); POTASSIUM 3.8 mmol/L (3.5-5.1)
[2020-02-21 08:22] LABS: THYROID STIMULATING HORMONE 1.075 uIU/mL (0.358-3.74)
[2020-02-21] MEDS: METOPROLOL SUCCINATE 25 MG TAB.SR.24H PO SCH (08:35)
[2020-02-21] MEDS: FUROSEMIDE 20 MG TABLET PO SCH (08:35)
[2020-02-21] MEDS: ASPIRIN EC 81 MG TABLET.DR PO SCH (08:35)
[2020-02-21] MEDS: CARBIDOPA/LEVODOPA 25/100 MG 1 UDTAB PO SCH ×3 (08:35→16:49)
[2020-02-21] MEDS: DULOXETINE HCL 30 MG CAPSULE.DR PO SCH (08:35)
[2020-02-21] MEDS: CLOPIDOGREL BISULFATE 75 MG TABLET PO SCH (08:36)
--- NOTE | 2020-02-21 12:21 | NUR ---
MS RN NOTE DWIGHT HOLM SEEN AND EVALUATED PATIENT. NO NEW ORDERS AT THIS TIME. NOTIFIED DR. NORRIS OF CONSULT.
--- NOTE | 2020-02-21 13:00 | NUR ---
MS RN NOTE SPOKE WITH DR. NORRIS ABOUT PATIENT BEING ON LOVENOX AND PLAVIX. PER MD TO KEEP BOTH MEDICATIONS FOR STENT HX AND DVT PROPHYLAXIS.
--- NOTE | 2020-02-21 15:55 | NUR ---
MS RN NOTE SPOKE WITH DIANELYS MYERS. I ENCOURAGED PATIENT EDUCATION FOR PROPER INTAKE DURING MEALS. NOTIFIED DR. NORRIS THAT HGB A1C IS 7.3. PER MD PLACE PATIENT ON BLOOD SUGAR CHECKS, SLIDING SCALE ACHS.
[2020-02-21] MEDS ORDERED: DEXTROSE 50%-WATER 50 ML DISP.SYRIN IV PRN (16:00)
[2020-02-21] MEDS: BLOOD SUGAR DIAGNOSTIC 1 EACH STRIP IN SCH ×2 (16:50→21:21)
--- NOTE | 2020-02-21 16:51 | NUR ---
MS RN NOTE PATIENT BLOOD SUGAR IS 98. NO INSULIN COVERAGE NEEDED PER PROTOCOL.
--- NOTE | 2020-02-21 19:00 | NUR ---
received in bed. george noted at his bedside. instructed him not to get oob not safe. reviewed the call light with him on how to call for the nurse for assist. noted he is cooperative but not grasping what I had said to him
--- NOTE | 2020-02-21 19:00 | NUR ---
MS RN CLOSING NOTE PATIENT IN BED RESTING COMFORTABLY. PATIENT IN NO ACUTE DISTRESS. NO SOB NOTED. PATIENT BREATHING IS EVEN AND UNLABORED. SAFETY PRECAUTIONS IN PLACE. LEFT KNEE BRACE IN PLACE. BED ALARM IS ON. PATIENT KEPT CLEAN, DRY AND COMFORTABLE THROUGHOUT SHIFT. NEEDS AND CONCERNS ADDRESSED. PATIENT BED IS LOCKED AND IN LOWEST POSITION. BED ALARM IS ON. CALL LIGHT WITHIN REACH. WILL ENDORSE CARE TO PM SHIFT FOR FLORIDALMA.
[2020-02-21 20:47] VITALS: BP 114/69
[2020-02-21 20:57] VITALS: BP 112/69
[2020-02-21] MEDS: ATORVASTATIN 40 MG TABLET PO SCH (21:18)
[2020-02-21] MEDS: ENOXAPARIN SODIUM 40 MG/0.4 ML DISP.SYRIN SQ SCH (21:18)
[2020-02-22] MEDS: HYDROCODONE/APAP 10/325MG 1 EA TABLET PO PRN (01:11)
--- NOTE | 2020-02-22 05:48 | NUR ---
ENDING NOTED: ALERT AND ORIENTATED X3. WON'T USE THE CALL LIGHT...HE YELLS OUT "HELP ME..HELP HELP". CALL LIGHT REVIEWED WITH HIM . HE HAS HAD A MODERATE SIZE BM IN THE DIAPER. HE HAS A IMMOBILIZER ON THELEFT LEG PPP BOTH LEGS AND BOTH LT AND RT FEET WARM TO TOUCH AND MOVEMENT PRESENT MEDICATED X1 FOR PAIN AND IT WAS EFFECTIVE
[2020-02-22] MEDS: BLOOD SUGAR DIAGNOSTIC 1 EACH STRIP IN SCH ×4 (06:28→21:30)
[2020-02-22] MEDS: HYDROCODONE/APAP 5/325MG 1 EACH TABLET PO PRN ×2 (06:48→17:18)
--- NOTE | 2020-02-22 07:15 | NUR ---
MS RN NOTES RECEIVED PATIENT IN BED. ALERT AND ORIENTED X3-4. HOB ELEVATED. NO SOB. DENIES ANY C/O PAIN NOR DISCOMFORT AT THIS TIME. LEFT LEG BRACE IN PLACE. LEFT AC # 18 SL INTACT AND PATENT. BED IN LOWEST POSITION, LOCKED. BED SIDERAILS UP X2. CALL LIGHT WITHIN REACH.
[2020-02-22 07:54] VITALS: BP 105/62
[2020-02-22] MEDS: ASPIRIN EC 81 MG TABLET.DR PO SCH (08:50)
[2020-02-22] MEDS: CLOPIDOGREL BISULFATE 75 MG TABLET PO SCH (08:50)
[2020-02-22] MEDS: DULOXETINE HCL 30 MG CAPSULE.DR PO SCH (08:53)
[2020-02-22] MEDS: FUROSEMIDE 20 MG TABLET PO SCH (08:53)
[2020-02-22] MEDS: METOPROLOL SUCCINATE 25 MG TAB.SR.24H PO SCH (08:54)
[2020-02-22] MEDS: CARBIDOPA/LEVODOPA 25/100 MG 1 UDTAB PO SCH ×3 (08:54→16:50)
[2020-02-22] MEDS: ALBUTEROL FS 2.5 MG/0.5 ML VIAL.NEB NEB PRN (09:12)
--- NOTE | 2020-02-22 09:14 | NUR ---
PRN BREATHING TX GIVEN. BILATERAL WHEEZING NOTED. NO SOB. PT TOLERATED TX WELL
[2020-02-22] MEDS: INSULIN REGULAR, HUMAN 100 UNIT/ML 3 ML VIAL SQ PRN (11:52)
--- NOTE | 2020-02-22 13:40 | NUR ---
MS RN NOTES COVID TEST DONE AND SENT TO LAB. DURING SWAB TEST, PATIENT KEPT ON CLOSING MOUTH DESPITE OF EXPLANATIONS GIVEN.
[2020-02-22 16:00] VITALS: BP 119/71
--- NOTE | 2020-02-22 19:00 | NUR ---
MS RN NOTES PATIENT RESTING COMFORTABLY IN BED. HOB ELEVATED. NO S/S OF RESPIRATORY DISTRESS. DENIES ANY C/O PAIN NOR DISCOMFORT AT THIS TIME. LEFT LEG BRACE IN PLACE. LEFT AC # 18 SL INTACT AND PATENT. BED IN LOWEST POSITION, LOCKED. BED SIDERAILS UP X2. CALL LIGHT WITHIN REACH. ABLE TO VERBALIZE NEEDS. IN NO APPARENT DISTRESS.
--- NOTE | 2020-02-22 19:00 | NUR ---
RN medsurg opening notes Received Pt from morning nurse. Pt is resting in bed comfortably. Pt is alert and orientedX3-4. Respiration is normal in room air. No SOB. No S/S of distress noted. IV sites at LAC# 18 is clean,intact and SL. L leg brace is in placed. Safety precautions is maintained. Bed at low position, brakes locked, side rails upX2 and call light is within reach. Will continue to monitor.
[2020-02-22 19:37] VITALS: BP 104/61
[2020-02-22 20:00] VITALS: BP 104/61
[2020-02-22] MEDS: ATORVASTATIN 40 MG TABLET PO SCH (21:08)
[2020-02-22] MEDS: ENOXAPARIN SODIUM 40 MG/0.4 ML DISP.SYRIN SQ SCH (21:10)
[2020-02-23] MEDS: HYDROCODONE/APAP 5/325MG 1 EACH TABLET PO PRN (05:35)
[2020-02-23] MEDS: BLOOD SUGAR DIAGNOSTIC 1 EACH STRIP IN SCH ×4 (06:30→22:00)
[2020-02-23] MEDS: INSULIN REGULAR, HUMAN 100 UNIT/ML 3 ML VIAL SQ PRN ×3 (06:31→17:42)
--- NOTE | 2020-02-23 06:51 | NUR ---
RN medsurg closing notes Pt is resting in bed comfortably. Pt is alert and orientedX3-4. Respiration is normal in room air. No SOB. No S/S of distress noted. IV sites at LAC# 18 is clean,intact and SL. VS is stable. Afebrile. Routine meds were given as ordered. L leg brace is in placed. Kept Pt clean, dry and comfortable. Safety precautions is maintained. Bed at low position, brakes locked, side rails upX2 and call light is within reach. Will endorse to morning nurse for FLORIDALMA.
--- NOTE | 2020-02-23 07:25 | NUR ---
RN MS OPENING NOTE: Received patient sleeping in bed comfortably. Patient did not complain of pain or discomfort. Patient has no SOB. Patient breathing is unlabored and equal bilaterally. Patient's bed is in the lowest position, side rails are up, and call light near. Will continue to follow up and monitor the patient.
[2020-02-23 08:00] VITALS: BP 134/70
[2020-02-23] MEDS: CARBIDOPA/LEVODOPA 25/100 MG 1 UDTAB PO SCH ×3 (09:24→16:43)
[2020-02-23] MEDS: FUROSEMIDE 20 MG TABLET PO SCH (09:24)
[2020-02-23] MEDS: ASPIRIN EC 81 MG TABLET.DR PO SCH (09:24)
[2020-02-23] MEDS: CLOPIDOGREL BISULFATE 75 MG TABLET PO SCH (09:24)
[2020-02-23] MEDS: DULOXETINE HCL 30 MG CAPSULE.DR PO SCH (09:24)
[2020-02-23] MEDS: METOPROLOL SUCCINATE 25 MG TAB.SR.24H PO SCH (09:25)
[2020-02-23] MEDS: HYDROCODONE/APAP 10/325MG 1 EA TABLET PO PRN ×3 (09:38→22:05)
[2020-02-23 16:00] VITALS: BP 105/63
--- NOTE | 2020-02-23 18:31 | NUR ---
MS RN CLOSING NOTE: Patient in bed watching TV, comfortably. Patient complained of pain on left knee. Administered pain medication as prescribed. Patient on 1L Nasal canula. Breathing equal and unlabored. Fall risk. Safety precaution in place. Bed in lowest level, brake on, side rails up, and call light within reach.
--- NOTE | 2020-02-23 19:10 | NUR ---
RN medsurg opening notes Pt is sitting in bed watching TV comfortably. Pt is alert and orientedX3-4. Respiration is normal in 1 L NC. No SOB. No S/S of distress noted. IV sites at LAC# 18 is clean,intact and SL. L leg brace is in placed. Safety precautions is maintained. Bed at low position, brakes locked, side rails upX2, bed alarm is on and call light is within reach. Will continue to monitor.
[2020-02-23 20:00] VITALS: BP 105/64
[2020-02-23] MEDS: ATORVASTATIN 40 MG TABLET PO SCH (21:47)
[2020-02-23] MEDS: ENOXAPARIN SODIUM 40 MG/0.4 ML DISP.SYRIN SQ SCH (21:47)
[2020-02-24] MEDS: BLOOD SUGAR DIAGNOSTIC 1 EACH STRIP IN SCH ×4 (06:47→21:48)
[2020-02-24] MEDS: INSULIN REGULAR, HUMAN 100 UNIT/ML 3 ML VIAL SQ PRN ×2 (06:49→16:50)
--- NOTE | 2020-02-24 06:50 | NUR ---
RN medsurg closing notes Pt is resting in bed comfortably. Pt is alert and orientedX3-4. Respiration is normal in 1 L NC. No SOB. No S/S of distress noted. IV sites at LAC# 18 is clean,intact and SL. VS is stable. Afebrile. Routine meds were given as ordered. L leg brace is in placed. Kept Pt clean, dry and comfortable. Safety precautions is maintained. Bed at low position, brakes locked, side rails upX2, bed alarm is on and call light is within reach. Will endorse to morning nurse for FLORIDALMA.
[2020-02-24 07:00] VITALS: BP 116/70
--- NOTE | 2020-02-24 07:10 | NUR ---
MS RN NOTES RECEIVED PATIENT WATCHING TV IN BED, ALERT AND ORIENTED X3. HOB ELEVATED. NO SOB. DENIES ANY C/O PAIN NOR DISCOMFORT AT THIS TIME. ON ROOM AIR WITH SPO2 OF 92%. LEFT AC # 18 SL INTACT AND PATENT. LEFT LEG BRACE IN PLACE. BED IN LOWEST POSITION, LOCKED. BED ALARM ON. CALL LIGHT WITHIN REACH. BED SIDERAILS UPX2. ABLE TO VERBALIZE NEEDS.
[2020-02-24] MEDS: FUROSEMIDE 20 MG TABLET PO SCH (08:38)
[2020-02-24] MEDS: CARBIDOPA/LEVODOPA 25/100 MG 1 UDTAB PO SCH ×3 (08:38→16:15)
[2020-02-24] MEDS: CLOPIDOGREL BISULFATE 75 MG TABLET PO SCH (08:38)
[2020-02-24] MEDS: METOPROLOL SUCCINATE 25 MG TAB.SR.24H PO SCH (08:39)
[2020-02-24] MEDS: ASPIRIN EC 81 MG TABLET.DR PO SCH (08:39)
[2020-02-24] MEDS: DULOXETINE HCL 30 MG CAPSULE.DR PO SCH (08:39)
[2020-02-24] MEDS: HYDROCODONE/APAP 5/325MG 1 EACH TABLET PO PRN ×2 (09:04→16:16)
[2020-02-24] MEDS: ALBUTEROL FS 2.5 MG/0.5 ML VIAL.NEB NEB PRN (09:23)
[2020-02-24 16:00] VITALS: BP 103/55
[2020-02-24 17:54] VITALS: BP 116/70
--- NOTE | 2020-02-24 18:56 | NUR ---
MS RN NOTES PATIENT RESTING COMFORTABLY IN BED. HOB ELEVATED. NO SOB. DENIES ANY C/O PAIN NOR DISCOMFORT AT THIS TIME. LEFT LEG BRACE IN PLACE. AMBULATE IN ROOM USING CANE WITH STEADY GAIT. LEFT AC # 18 SL INTACT AND PATENT. BED IN LOWEST POSITION, LOCKED. BED SIDERAILS UP X2. CALL LIGHT WITHIN REACH. ABLE TO VERBALIZE NEEDS. IN NO APPARENT DISTRESS.
--- NOTE | 2020-02-24 19:00 | NUR ---
MS RN NOTE CALLED LAB, COVID TEST STILL PENDING.
[2020-02-24 20:00] VITALS: BP 119/76
--- NOTE | 2020-02-24 20:00 | NUR ---
RN NOTES RECEIVED PT. AWAKE ON BED, A/OX3, NON-COMPLIANT, WITH LEFT LEG BRACE UNDER HIS JOGGING PAINTS, ASKED PT'S IF I CAN SEE HIS BRACE, PT. IS REFUSING, DENIES PAIN, NO SOB, WALKED WITH CANE. CALL LIGHT WITHIN REACH, SIDERAILSUPX2, CONTINUE TO MONITOR
[2020-02-24] MEDS: ENOXAPARIN SODIUM 40 MG/0.4 ML DISP.SYRIN SQ SCH ×2 (21:00→21:47)
[2020-02-24] MEDS: ATORVASTATIN 40 MG TABLET PO SCH (21:48)
--- NOTE | 2020-02-24 23:10 | NUR ---
RN NOTES PT. FOUND ON THE FLOOR , PER PATIENT " HE DID NOT HIT HIS HEAD AND HE BRACED HIMSELF", PATIENT DENIES PAIN, PATIENT CAN RAISE HER BILATERAL ARM , HEAD TO TOE ASSESSMENT RENDERED
--- NOTE | 2020-02-24 23:25 | NUR ---
RN NOTES DR. MOHAMUD CAME AND INFORMED HIM THAT PATIENT FOUND ON THE FLOOR AND HEAD TO TOE ASSESSMENT WAS DONE. DR. MOHAMUD ORDERED TO MONITOR THE PATIENT TONIGHT
[2020-02-25] MEDS: HYDROCODONE/APAP 5/325MG 1 EACH TABLET PO PRN ×4 (05:36→21:45)
--- NOTE | 2020-02-25 05:36 | NUR ---
RN NOTES COMPLAINED OF BACK PAIN- BACK ASSESSMENT DONE -NO BRUISE NOTED- NORCO 5/325MG PO GIVEN ORDERED, V/S STABLE
--- NOTE | 2020-02-25 06:49 | NUR ---
RN NOTES AWAKE, REFUSED MORNING CARE, PT. ABLE TO RAISED BOTH ARMS, DENIES PAIN ON HIS LEGS, DENIES PAIN, NO SOB, CALL LIGHT WITHIN REACH, SIDERAILSUPX2, PT. NEEDS ATTENDED
[2020-02-25] MEDS: BLOOD SUGAR DIAGNOSTIC 1 EACH STRIP IN SCH ×4 (07:30→21:56)
--- NOTE | 2020-02-25 07:45 | NUR ---
M/S RN OPENING NOTES RECEIVED PT ON BED, A/O 3, RESPONSIVE TO ALL STIMULI, MALAGASY SPEAKING. RESPIRATION EVEN AND UNLABORED, ON ROOM AIR SATING 91%. ABD SOFT AND NON DISTENDED WITH ACTIVE BOWEL SOUNDS, URINAL ON BEDSIDE, AMBULATORY WITH ASSIST/WALKER WITH WBAT, RISK FOR FALL, HAD FALL INCIDENT LAST NIGHT PER NIGHT NURSE, NO CONTUSION/FRACTURE ASSESSED. SKIN WARM TO TOUCH AND DRY, WITH LEFT LEG BRACE, PT REFUSED TO BE CHANGE FOR GOWN OR REMOVE JOGGING PANTS FOR FURTHER ASSESSMENT- PT ABLE TO LIFT LEFT LEG CANNOT BARE >1 MINUTE, ABLE TO WIGGLE TOES WITH GOOD CIRCULATION, TO FOOT, NO NEW DISCOLORATION/PALENESS AND NO EDEMA. PT C/O 8/10 PAIN ON BACK AND LEFT LEG YET STATED "I JUST TOOK PAIN MEDICATION 2 HOURS AGO, IT WAS 10 AND NOW 8." REMINDED THAT HE HAS OTHER PAIN MEDICATION NEEDED, PT STATED CAN TOLERATE IT AT THIS TIME. IV SITE AT LEFT AC #18 PATENT IN FLUSHING, NO S/SX OF INFILTRATION NOTED. BED IN LOW LOCKED POSITION, BED ALARM ON, SR X2 FOR SAFETY, CALL LIGHT WITHIN REACH. WILL CONTINUE TO MONITOR CARE.
[2020-02-25 08:08] VITALS: BP 130/67
[2020-02-25] MEDS: FUROSEMIDE 20 MG TABLET PO SCH (08:09)
[2020-02-25] MEDS: METOPROLOL SUCCINATE 25 MG TAB.SR.24H PO SCH (08:09)
[2020-02-25] MEDS: DULOXETINE HCL 30 MG CAPSULE.DR PO SCH (08:09)
[2020-02-25] MEDS: CARBIDOPA/LEVODOPA 25/100 MG 1 UDTAB PO SCH ×3 (08:09→16:43)
[2020-02-25] MEDS: ASPIRIN EC 81 MG TABLET.DR PO SCH (08:09)
[2020-02-25] MEDS: CLOPIDOGREL BISULFATE 75 MG TABLET PO SCH (08:09)
[2020-02-25] MEDS: INSULIN REGULAR, HUMAN 100 UNIT/ML 3 ML VIAL SQ PRN ×2 (11:31→16:48)
--- NOTE | 2020-02-25 11:31 | NUR ---
M/S RN NOTES PT BS 137. PT REFUSED INSULIN, STATED HE DOESN'T NEED IT. RISK AND BENEFITS DISCUSSED, OFFERED X3. CONTINUE TO REFUSED. ADVISED TO DRINK WATER. PT VERBALIZED UNDERSTANDING
--- NOTE | 2020-02-25 12:12 | NUR ---
M/S RN NOTES PT SEEN AND EVALUATED BY DR. NORRIS, FOLLOWING UP COVID19 RESULT FOR DC PLAN TALKED TO MADAI FROM LAB REGARDING COVID 19 RESULT. LAB TO FF UP FOR RESULT, PENDING X3 DAYS. NOTIFIED
[2020-02-25] MEDS ORDERED: HYDR-3972 PO (12:35)
--- NOTE | 2020-02-25 16:30 | NUR ---
M/S RN NOTES RECEIVED A CALL FROM DARRELL (LAB), PT COVID 19 RESULT IS IN
--- NOTE | 2020-02-25 16:35 | NUR ---
M/S RN NOTES PT NOTIFIED THAT THE RESULT OF COVID19 CAME BACK NEGATIVE, DISCHARGE ORDER PLACED BY DR. NORRIS TO [facility]. EXPLAINED THE BENEFIT OF THE CONTINUITY OF CARE IN A SNF. PT AGREED AND VERBALIZED UNDERSTANDING. CALLED CM, TALKED TO JAIRO FOR DISCHARGE INSTRUCTIONS AND TRANSPORTATION.
[2020-02-25 16:44] VITALS: BP 104/66
--- NOTE | 2020-02-25 17:05 | NUR ---
M/S RN NOTES PER CM LOGAN GILL FROM [facility] CALLED HER AND CANNOT ACCEPT PT TONIGHT DUE TO BED CHANGES FOR COVID 19 SURVEY. CAR MANAGER TOMORROW SET UP AT 8AM TO THE SNF. PT NOTIFIED AND AGREED WITH CHANGES. PT VERBALIZED UNDERSTANDING
--- NOTE | 2020-02-25 18:41 | NUR ---
M/S RN CLOSING NOTES PT A/OX3, RESPONSIVE TO ALL STIMULI. PT HAS NO PRESENCE OF ACUTE RESPIRATORY DISTRESS, TOLERATING ROOM AIR SAT. ABD SOFT AND NON DISTENDED WITH ACTIVE BOWEL SOUNDS, BM TODAY. SKIN WARM TO TOUCH AND DRY, STILL REFUSED TO CHECK LEFT LEG, FOOT WITH GOOD CIRCULATION, ABLE TO WIGGLE TOES. DENIES PAIN AND DISCOMFORT AT THIS TIME. IV SITE AT LEFT AC #18 PATENT IN FLUSHING, SITE HAS NO S/SX OF INFILTRATION. PT COVID19 NEGATIVE. DISCHARGE TO [facility] ON 02/26/2020 AT 8AM TO BE PICKED UP BY [facility]. ALL CARE ATTENDED. CALL LIGHT WITHIN REACH, BED IN LOW LOCKED POSITION, SR X2 UP FOR SAFETY. ENDORSED PT CARE TO NEXT SHIFT
--- NOTE | 2020-02-25 19:45 | NUR ---
MS RN OPENING NOTES RECEIVED PATIENT SLEEPING IN BED COMFORTABLY; EASILY AROUSED; A/OX3, BREATHING EVEN AND UNLABORED; PATIENT TOLERATING ROOM AIR WELL, NO SOB NOTED; NO DISTRESS NOTED; LAC #18 H/L, INTACT AND PATENT; FLUSHING WELL, NO S/S OF REDNESS OR INFILTRATION NOTED; PER AM SHIFT, PATIENT HAS LEFT LEG BRACE D/T RECENT FALL; PATIENT DOES NOT WANT LEFT LEG BRACE TO BE TOUCHED/TAKEN OFF; PATIENT HAS BOUTS OF NON-COMPLIANCE; WILL MONITOR; SAFETY PRECAUTIONS IMPLEMENTED; BED LOCKED IN LOW POSITION; SIDE RAILS X2; CALL LIGHT WITHIN REACH; WILL CONT TO MONITOR
[2020-02-25 20:00] VITALS: BP 103/58
[2020-02-25] MEDS: ATORVASTATIN 40 MG TABLET PO SCH (21:39)
[2020-02-25] MEDS: ENOXAPARIN SODIUM 40 MG/0.4 ML DISP.SYRIN SQ SCH (21:43)
--- NOTE | 2020-02-25 21:45 | NUR ---
MS RN NOTES PATIENT COMPLAINT OF LEG PAIN, RATED 9/10. NORCO ADMINISTERED PER MD ORDER. VSS; WILL CONT TO MONITOR
--- NOTE | 2020-02-25 21:57 | NUR ---
MS RN NOTES PATIENT REFUSING SKIN ASSESSMENT AND FOR PICTURES TO BE TAKEN; WILL TRY AGAIN LATER;
--- NOTE | 2020-02-26 01:17 | NUR ---
MS RN NOTES PATIENT STILL REFUSING SKIN ASSESSMENT; PATIENT STARTED YELLING, "WHAT PICTURES DO THEY FREAKING WANT."
[2020-02-26] MEDS: HYDROCODONE/APAP 5/325MG 1 EACH TABLET PO PRN ×3 (01:31→11:34)
--- NOTE | 2020-02-26 01:31 | NUR ---
MS RN NOTES PATIENT COMPLAINT OF LEFT LEG PAIN; RATED 8/10, VSS. NORCO ADMINISTERED PER MD ORDER, WILL CONT TO MONITOR
--- NOTE | 2020-02-26 03:43 | NUR ---
MS WEAVER NOTES PATIENT REFUSING SKIN ASSESSMENT. PATIENT DOES NOT WANT ANYONE TO TOUCH HIS LEG BRACE. Addendum: 02/26/20 at 0350 by LUCINA JACKSON RN PATIENT REPORTED HE DOES NOT SEE A POINT FOR PICTURES TO BE TAKEN SINCE HE DOES NOT HAVE ANY OPEN WOUNDS; PATIENT EDUCATED ON PROTOCOL, PATIENT STILL REFUSED. WILL INFORM ONCOMING SHIFT.
--- NOTE | 2020-02-26 07:28 | NUR ---
MS RN CLOSING NOTES PATIENT RESTING IN BED COMFORTABLY; A/OX4; BREATHING EVEN AND UNLABORED; NO SOB NOTED; PATIENT TOLERATING ROOM AIR WELL; ABLE TO MAKE NEEDS KNOWN; LAC #18 H/L INTACT AND PATENT; FLUSHING WELL; NO S/S OF REDNESS OR INFILTRATION; PATIENT ABLE TO MAKE NEEDS KNOWN; PATIENT REFUSING PICTURES; ALL NEEDS RENDERED; SAFETY PRECAUTIONS IMPLEMENTED; BED LOCKED IN LOW POSITION; SIDE RAILS X2; CALL LIGHT WITHIN REACH; WILL ENDORSE FLORIDALMA TO ONCOMING SHIFT
--- NOTE | 2020-02-26 07:30 | NUR ---
MS RN NOTES RECEIVED PATIENT RESTING IN BED COMFORTABLY; A/OX4; ABLE TO MAKE NEEDS KNOWN; NO SIGNS OF DISTRESS NOTED AT THIS TIME. LAC #18 H/L INTACT AND PATENT; FLUSHING WELL; NO S/S OF REDNESS OR INFILTRATION; PATIENT ABLE TO MAKE NEEDS KNOWN; SAFETY PRECAUTIONS IMPLEMENTED; BED LOCKED IN LOW POSITION; SIDE RAILS X2; CALL LIGHT WITHIN REACH; WILL CONTINUE TO MONITOR.
[2020-02-26] MEDS: BLOOD SUGAR DIAGNOSTIC 1 EACH STRIP IN SCH ×2 (07:42→11:43)
[2020-02-26 08:00] VITALS: BP 113/78
[2020-02-26 08:45] VITALS: BP 113/78
[2020-02-26] MEDS: ASPIRIN EC 81 MG TABLET.DR PO SCH (08:45)
[2020-02-26] MEDS: DULOXETINE HCL 30 MG CAPSULE.DR PO SCH (08:45)
[2020-02-26] MEDS: CARBIDOPA/LEVODOPA 25/100 MG 1 UDTAB PO SCH ×2 (08:45→12:50)
[2020-02-26] MEDS: METOPROLOL SUCCINATE 25 MG TAB.SR.24H PO SCH (08:45)
[2020-02-26] MEDS: FUROSEMIDE 20 MG TABLET PO SCH (08:45)
[2020-02-26] MEDS: CLOPIDOGREL BISULFATE 75 MG TABLET PO SCH (08:45)
--- NOTE | 2020-02-26 15:50 | NUR ---
RN DISCHARGED NOTES PATIENT DISCHARGED IN STABLE CONDITION, ABLE TO MAKE NEEDS KNOWN. V/S TAKEN, STABLE AND RECORDED. PATIENT'S IV REMOVED AND APPLIED PRESSURE DRESSINGS, REFUSED SKIN ASSESSMENT AND PICTURES, NAME ARM BAND REMOVED, ALL BELONGINGS CHECKED AND SIGNED. HEALTH TEACHINGS/DISCHARGED INSTRUCTIONS GIVEN AND VERBALIZED UNDERSTANDING. PATIENT LEFT UNIT VIA GURNEY ACCOMPANIED BY 2 AMBULANCE STAFF, WITH NO ACUTE SIGNS OF DISTRESS. CHARGE NURSE AWARE OF DISCHARGED.
== END 2020-02-26 16:09 | DRG 914 ==
LOC: ER 12:48 → MEDSG2 15:42
DX: S89.92XA Unspecified injury of left lower leg, initial encounter (principal); I50.32 Chronic diastolic (congestive) heart failure; I11.0 Hypertensive heart disease with heart failure; Z95.5 Presence of coronary angioplasty implant and graft; Z79.899 Other long term (current) drug therapy; Z79.82 Long term (current) use of aspirin; Z91.012 Allergy to eggs; Z88.0 Allergy status to penicillin; Z91.013 Allergy to seafood; Z91.018 Allergy to other foods; I25.119 Atherosclerotic heart disease of native coronary artery with unspecified angina pectoris; J98.4 Other disorders of lung; J44.9 Chronic obstructive pulmonary disease, unspecified; Z72.0 Tobacco use; E78.5 Hyperlipidemia, unspecified; Z98.1 Arthrodesis status; W01.0XXA Fall on same level from slipping, tripping and stumbling without subsequent striking against object, initial encounter; Y92.522 Railway station as the place of occurrence of the external cause
CPT/HCPCS: 36415; 71045-TC; 80048-TC; 80061-TC; 80076-TC; 82962-TC; 83735-TC; 83880; 84100-TC; 84443-TC; 84484-TC; 85025-TC; 85730-TC; 87081-TC; 93307-TC; 97116-TC; 97530-TC; G0378; J1650; J1815; J7030; U0003-CS

== ENCOUNTER 2020-11-23 18:24 | Inpatient (IN) | payer MEDICARE, OTHER ==
[~2020-11-23] VITALS: Ht 170.2 cm; Wt 74.8 kg
[~2020-11-23 18:24] MED LIST changes: +ALBU18HF2 INH; -ALBU6.7H9 IH; -ASPI-1169 PO; +ASPI-1420 PO; +CARB1TAB21 PO; +CLOP75TA15 PO; +DULO30CA52 PO; -FLUT1DIS5 IH; +FURO20TA4 PO; +HYDR-3972 PO; -ISOS10TA8 PO; -LEVO500T75 PO; +METO25TA4 PO; +MIDO5TAB4 PO; -PANT40TA2 PO; -SULF1TAB48 PO; -Valsartan PO
[2020-11-23 19:45] VITALS: BP 117/66
[2020-11-23 19:48] VITALS: BP 117/66
[2020-11-23] MEDS ORDERED: FLUT1DIS5 INH (19:58)
[2020-11-23] MEDS ORDERED: MAGNESIUM HYDROXIDE 30 ML UDC PO PRN (20:00)
[2020-11-23] MEDS ORDERED: ACETAMINOPHEN 325 MG TABLET PO PRN (20:00)
[2020-11-23] MEDS ORDERED: MAG HYDROX/AL HYDROX/SIMETH 30 ML UDC PO PRN (20:00)
[2020-11-23] MEDS ORDERED: ISOS60TA72 PO (20:01)
[2020-11-23] MEDS ORDERED: PANT40TA49 PO (20:03)
[2020-11-23] MEDS ORDERED: IPRA4AER IH (20:06)
--- NOTE | 2020-11-23 20:45 | NUR ---
GPS RN-ADMISSION NOTES: ADMITTED A 65-YR OLD WHITE MALE, FROM [facility], ON 5150 HOLD FOR DTS AND GD. PER HOLD, 65 YEARS OLD MALE WITH WORSENING DEPRESSION AND SUICIDAL IDEATION IN THE CONTEXT OF MEDICAL PROBLEMS AND POOR SOCIAL SUPPORT. UPON FACE TO FACE ASSESSMENT, PT. IS A & O X 1-2, CONFUSED, DISORGANIZED, FORGETFUL, DISHEVELED, RESTRICTED, WITHDRAWN, ISOLATIVE, MOOD SWINGS, ANXIOUS & RESTLESS AT TIMES, PT. STRONGLY DENIED SI/HI, AV/VH, PER PATIENT," I DEFECATED IN MY PANTS, FIRE DEPARTMENT TOOK ME TO THE HOSPITAL." PT. IS REDIRECTABLE, AMBULATORY BUT UNSTEADY GAIT, HIGH FALL RISK. PATIENT HAS HX OF DEPRESSION. PER RECORDS, PT. HAD C/O MELENA, EGD DONE ON 11/22/20, RESULTED "NORMAL." PT WAS ADVISED OF HIS HOLD. PT'S RIGHTS HANDBOOK AND A GUIDE TO PRESCRIPTION MEDICATIONS GIVEN. IN NO APPARENT DISTRESS NOTED. PT EVAL ORDERED. BELONGINGS WERE INVENTORIED AND CHECKED FOR CONTRABAND. PT. IS UNDER THE PSYCHIATRIC CARE OF DR. SHAFFER, ORDERS OBTAINED, AND UNDER THE MEDICAL CARE OF DR. IRIZARRY. MED RECON DONE. PT'S BS LEVEL IS 127 MG/DL. PT. REFUSED FLU & PNEUMO VACCINE WHEN OFFERED, PER PT. HE RECEIVED FLU VACCINE BUT FORGOT WHEN. MRSA SWAB COLLECTED & WILL BE SENT TO LAB. SKIN BODY ASSESSMENT DONE. DENIES PAIN/DISCOMFORT AT THIS TIME BUT HAS HX OF CHRONIC NECK & BACK PAIN. COVID NEGATIVE AT [facility] ON 11/22/20. SAFETY PRECAUTIONS IN PLACE. BED ALARM ON. BED LOCKED AND IN LOWEST POSITION. SIDE RAILS UP X2. WILL CONTINUE TO MONITOR Q15 MINS ROUNDS FOR SAFETY AND BEHAVIOR.
[2020-11-23] MEDS ORDERED: BLOOD SUGAR DIAGNOSTIC 1 EACH STRIP IN ONE (21:00)
--- NOTE | 2020-11-23 21:44 | NUR ---
RN NOTE CHARGE NURSE NOTIFIED SRINIVAS GOMES ABOUT NEW ADMISSION AT GPS UNIT IN ROOM 214-1 & MEDS ARE READY TO BE RECONCILED.
[2020-11-23] MEDS ORDERED: Z GUARD REMEDY 2 OZ OINT TP PRN (22:00)
[2020-11-23] MEDS ORDERED: ALBUTEROL SULFATE INH 18 GM HFA.AER.AD IH PRN (23:00)
[2020-11-23] MEDS ORDERED: IPRATROPIUM/ALBUTEROL INHALER IH PRN (23:00)
[2020-11-23] MEDS: MIDODRINE HCL (5MG) 5 MG TABLET PO SCH (23:00)
[2020-11-23] MEDS: CARBIDOPA/LEVODOPA 25/100 MG 1 UDTAB PO SCH (23:13)
--- NOTE | 2020-11-23 23:16 | NUR ---
RN NOTE: REFUSED MIDODRINE HCL 5 MG PATIENT REFUSED TO TAKE MIDODRINE HCL 5MG SCHEDULED AT 2300, STATED," I DON'T NEED IT & I DON'T WANT IT, THAT'S ALL." DESPITE OF RISKS & BENEFITS EXPLANATIONS, PT. CONTINUE TO REFUSE MEDICINE.
[2020-11-23] MEDS: HYDROCODONE/APAP 5/325MG TABLET PO PRN (23:24)
--- NOTE | 2020-11-23 23:25 | NUR ---
RN NOTE: PAIN PATIENT C/O BACK & NECK PAIN 5/ & WANTED TO TAKE NORCO ONLY AT THIS TIME. NORCO 5/325 MG 1 TAB PO GIVEN. WILL CONTINUE TO MONITOR THE PATIENT FOR ANY CHANGES.
--- NOTE | 2020-11-23 23:30 | NUR ---
RN NOTE ASKED THE PATIENT WHO TO NOTIFY ABOUT HIS ADMISSION AT [facility], PATIENT STATED," ALL MY FAMILY MEMBERS ARE , THERE IS NO ONE TO NOTIFY. I HAVE A FRIEND, WHO I LIVE WITH AT [facility] BUT YOU DON'T NEED TO CALL HIM." WILL CONTINUE TO MONITOR THE PATIENT CLOSELY.
--- NOTE | 2020-11-24 06:36 | NUR ---
RN NOTE MRSA SWAB WAS COLLECTED & SENT TO LAB.
[2020-11-24 06:37] LABS: BASOPHILS # (AUTO) 0.1 /CMM (0.0-0.2); BASOPHILS % (AUTO) 0.9 % (0.0-2.0); EOSINOPHILS % (AUTO) 1.3 % (0.0-6.0); HEMATOCRIT 29 % (39-51); HEMOGLOBIN 9.9 g/dL (13.5-17.5); LYMPHOCYTES # (AUTO) 1.6 /CMM (0.8-4.8); LYMPHOCYTES % (AUTO) 27.7 % (20.0-44.0); MEAN CORPUSCULAR HGB CONC 34 g/dl (31.0-36.0); MEAN CORPUSCULAR VOLUME 96 fL (80-96); MONOCYTES # (AUTO) 0.6 /CMM (0.1-1.30); NEUTROPHILS # (AUTO) 3.4 /CMM (1.8-8.9); NEUTROPHILS % (AUTO) 59.1 % (43.0-81.0); PLATELET COUNT (AUTO) 195 /CMM (150-450); RED BLOOD CELL COUNT(AUTO) 3.05 MIL/uL (4.5-6.0); WHITE BLOOD COUNT (AUTO) 5.7 K/uL (4.3-11.0)
[2020-11-24] MEDS ORDERED: ALBUTEROL FS 2.5 MG/0.5 ML VIAL.NEB NEB PRN (07:00)
[2020-11-24] MEDS ORDERED: IPRATROPIUM NEB FS 0.5 MG/2.5 ML AMPUL.NEB IH PRN (07:00)
[2020-11-24 08:00] VITALS: BP 107/65
[2020-11-24 08:15] LABS: CALCIUM, SERUM 8.6 mg/dL (8.5-10.1)
[2020-11-24] MEDS: ASPIRIN EC 81 MG TABLET.DR PO SCH (08:44)
[2020-11-24] MEDS: FUROSEMIDE 20 MG TABLET PO SCH (08:44)
[2020-11-24] MEDS: PANTOPRAZOLE 40 MG/PACK PACK PO SCH (08:44)
[2020-11-24] MEDS: METOPROLOL SUCCINATE 25 MG TAB.SR.24H PO SCH (08:45)
[2020-11-24] MEDS: CLOPIDOGREL BISULFATE 75 MG TABLET PO SCH (08:45)
[2020-11-24] MEDS: CARBIDOPA/LEVODOPA 25/100 MG 1 UDTAB PO SCH ×3 (08:45→16:14)
[2020-11-24] MEDS: FLUTICASONE/VILANTEROL 1 EACH BLST.W.DEV IH SCH (08:46)
[2020-11-24] MEDS: MIDODRINE HCL (5MG) 5 MG TABLET PO SCH ×2 (08:46→16:14)
[2020-11-24] MEDS: NICOTINE PATCH (14MG) 14 MG PATCH.TD24 TD SCH (08:55)
[2020-11-24] MEDS: HYDROCODONE/APAP 5/325MG TABLET PO PRN ×4 (08:58→22:10)
--- NOTE | 2020-11-24 08:58 | NUR ---
RN NOTE PATIENT ASKING FOR PAIN MED. 9/10 PAIN ON HIS BACK/NECK. NORCO PRN 5/325 MG GIVEN. WILL CONTINUE TO MONITOR THROUGHOUT THE SHIFT.
[2020-11-24] MEDS ORDERED: FLUTICASONE/SALMETEROL 1 DISK IH SCH (09:00)
--- NOTE | 2020-11-24 13:06 | NUR ---
RN NOTE PATIENT ASKING FOR ANOTHER PAIN MED. 8/10 PAIN ON HIS BACK/NECK. NORCO PRN 5/325 MG GIVEN. WILL REASSESS AND MONITOR THROUGHOUT THE SHIFT.
[2020-11-24 16:00] VITALS: BP 112/67
[2020-11-24] MEDS: ATORVASTATIN 40 MG TABLET PO SCH (21:07)
[2020-11-24] MEDS: DULOXETINE HCL 30 MG CAPSULE.DR PO SCH (21:16)
--- NOTE | 2020-11-24 21:17 | NUR ---
PATIENT REFUSED MEDICATION STATES, "I AM NOT FAMILIAR WITH THAT MEDICATION, ID LIKE TO SPEAK TO THE DOCTOR BEFORE TAKING THAT." Addendum: 11/24/20 at 2118 by JANIYA EUBANKS RN REFERRING TO [facility]
[2020-11-24 21:18] VITALS: BP 115/64
[2020-11-25] MEDS: PANTOPRAZOLE 40 MG/PACK PACK PO SCH (07:30)
[2020-11-25 08:00] VITALS: BP 95/51
[2020-11-25] MEDS: CARBIDOPA/LEVODOPA 25/100 MG 1 UDTAB PO SCH ×3 (08:30→16:45)
[2020-11-25] MEDS: DULOXETINE HCL 30 MG CAPSULE.DR PO SCH (08:30)
[2020-11-25] MEDS: ASPIRIN EC 81 MG TABLET.DR PO SCH (08:30)
[2020-11-25] MEDS: HYDROCODONE/APAP 5/325MG TABLET PO PRN ×3 (08:30→21:02)
[2020-11-25] MEDS: CLOPIDOGREL BISULFATE 75 MG TABLET PO SCH (08:30)
[2020-11-25] MEDS: MIDODRINE HCL (5MG) 5 MG TABLET PO SCH ×2 (08:34→16:45)
[2020-11-25] MEDS: FUROSEMIDE 20 MG TABLET PO SCH (08:35)
[2020-11-25] MEDS: METOPROLOL SUCCINATE 25 MG TAB.SR.24H PO SCH (08:35)
[2020-11-25] MEDS: FLUTICASONE/VILANTEROL 1 EACH BLST.W.DEV IH SCH (08:35)
[2020-11-25] MEDS: NICOTINE PATCH (14MG) 14 MG PATCH.TD24 TD SCH (08:35)
[2020-11-25 16:00] VITALS: BP 96/53
--- NOTE | 2020-11-25 16:25 | NUR ---
Individual Therapy: SW met with pt. bedside to conduct individual therapy regarding Positive Coping Mechanisms. Patient appears unkempt and was cooperative. 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 Patient stated, "I just walk off during disagreements". SW educated patient about positive coping mechanisms. Patient expressed understanding. SW will continue to provide therapy as needed.
[2020-11-25] MEDS: ARIPIPRAZOLE 5 MG TABLET PO SCH (16:45)
[2020-11-25 20:26] VITALS: BP 119/72
[2020-11-25] MEDS: MUPIROCIN OINT 2% 22 GM TUBE NS SCH (21:02)
[2020-11-25] MEDS: ATORVASTATIN 40 MG TABLET PO SCH (21:03)
[2020-11-26] MEDS: PANTOPRAZOLE 40 MG/PACK PACK PO SCH (07:30)
[2020-11-26 08:00] VITALS: BP 92/38
[2020-11-26] MEDS: CLOPIDOGREL BISULFATE 75 MG TABLET PO SCH (08:27)
[2020-11-26] MEDS: DULOXETINE HCL 30 MG CAPSULE.DR PO SCH (08:28)
[2020-11-26] MEDS: ARIPIPRAZOLE 5 MG TABLET PO SCH ×2 (08:28→17:23)
[2020-11-26] MEDS: MIDODRINE HCL (5MG) 5 MG TABLET PO SCH ×2 (08:28→17:23)
[2020-11-26] MEDS: ASPIRIN EC 81 MG TABLET.DR PO SCH (08:28)
[2020-11-26] MEDS: FLUTICASONE/VILANTEROL 1 EACH BLST.W.DEV IH SCH (08:28)
[2020-11-26] MEDS: CARBIDOPA/LEVODOPA 25/100 MG 1 UDTAB PO SCH ×3 (08:28→17:23)
[2020-11-26] MEDS: FUROSEMIDE 20 MG TABLET PO SCH (08:28)
[2020-11-26] MEDS: NICOTINE PATCH (14MG) 14 MG PATCH.TD24 TD SCH (08:29)
[2020-11-26] MEDS: METOPROLOL SUCCINATE 25 MG TAB.SR.24H PO SCH (08:29)
[2020-11-26] MEDS: MUPIROCIN OINT 2% 22 GM TUBE NS SCH ×2 (08:29→22:36)
[2020-11-26] MEDS: HYDROCODONE/APAP 5/325MG TABLET PO PRN ×4 (09:17→22:37)
[2020-11-26] MEDS ORDERED: MUPIROCIN OINT 2% 22 GM TUBE NS SCH (11:30)
--- NOTE | 2020-11-26 12:10 | NUR ---
Initial Discharge plan: Pt currently resides at [address] [place] [address]. [id number] . SW spoke to Admission ([facility] ([facility]) [phone] and review pt.s referral packet. Per pt, he would like to return to the same living facility. YANELIS will work the pt and the MD appropriate discharged planning. SW will form a safe and proper discharge.
--- NOTE | 2020-11-26 12:11 | NUR ---
Phone Call: SW has spoken to Admission ([facility] ([facility]) [phone]) regarding the pt's referral packet. Per admission, they will review pt's referral packet.
[2020-11-26 16:00] VITALS: BP 110/68
[2020-11-26 20:11] VITALS: BP 110/68
[2020-11-26] MEDS: ATORVASTATIN 40 MG TABLET PO SCH (22:37)
[2020-11-27] MEDS: HYDROCODONE/APAP 5/325MG TABLET PO PRN ×4 (03:52→19:57)
[2020-11-27] MEDS: PANTOPRAZOLE 40 MG/PACK PACK PO SCH (07:30)
[2020-11-27 08:00] VITALS: BP 95/59
[2020-11-27] MEDS: FLUTICASONE/VILANTEROL 1 EACH BLST.W.DEV IH SCH (08:55)
[2020-11-27] MEDS: MUPIROCIN OINT 2% 22 GM TUBE NS SCH ×2 (08:56→21:39)
[2020-11-27] MEDS: NICOTINE PATCH (14MG) 14 MG PATCH.TD24 TD SCH (08:56)
[2020-11-27] MEDS: FUROSEMIDE 20 MG TABLET PO SCH (08:56)
[2020-11-27] MEDS: ASPIRIN EC 81 MG TABLET.DR PO SCH (08:56)
[2020-11-27] MEDS: DULOXETINE HCL 30 MG CAPSULE.DR PO SCH (08:56)
[2020-11-27] MEDS: CLOPIDOGREL BISULFATE 75 MG TABLET PO SCH (08:58)
[2020-11-27] MEDS: CARBIDOPA/LEVODOPA 25/100 MG 1 UDTAB PO SCH ×3 (08:58→16:55)
[2020-11-27] MEDS: ARIPIPRAZOLE 5 MG TABLET PO SCH ×2 (08:58→16:55)
[2020-11-27] MEDS: METOPROLOL SUCCINATE 25 MG TAB.SR.24H PO SCH (09:00)
[2020-11-27] MEDS: MIDODRINE HCL (5MG) 5 MG TABLET PO SCH ×2 (09:00→16:56)
--- NOTE | 2020-11-27 09:14 | NUR ---
RN NOTE: PAIN PT C/O 06/22 GENERALIZED PAIN. REQUESTING NORCO PRN. NORCO ADMINISTERED
--- NOTE | 2020-11-27 13:00 | NUR ---
Courting hearing: YANELIS spoke with Dale via phone at 13:00pm to discuss hearing for the pt. Pt attended the meeting. The meeting is held through conference call because technical issues with the IPAD for Web[employer] meeting.The pt decided to appeal for a second hearing and Writ form was completed by RN (Karolina) and faxed today.
--- NOTE | 2020-11-27 14:03 | NUR ---
RN NOTE: PAIN PT C/O 06/22 GENERALIZED PAIN. REQUESTING NORCO PRN. MEDICATED WITH NORCO PO
--- NOTE | 2020-11-27 14:28 | NUR ---
RN-CO: FILLED UP WRIT OF [employer] AND FAXED IT TO [address].
[2020-11-27 16:00] VITALS: BP 105/74
[2020-11-27 20:38] VITALS: BP 106/57
[2020-11-27] MEDS: clonazePAM 0.5 MG TABLET PO PRN (21:39)
[2020-11-27] MEDS: TEMAZEPAM 7.5 MG CAPSULE PO PRN (21:39)
[2020-11-27] MEDS: ATORVASTATIN 40 MG TABLET PO SCH (21:39)
[2020-11-28] MEDS: PANTOPRAZOLE 40 MG/PACK PACK PO SCH (07:30)
[2020-11-28] MEDS: CARBIDOPA/LEVODOPA 25/100 MG 1 UDTAB PO SCH ×3 (08:27→16:14)
[2020-11-28] MEDS: FUROSEMIDE 20 MG TABLET PO SCH (08:27)
[2020-11-28] MEDS: ASPIRIN EC 81 MG TABLET.DR PO SCH (08:27)
[2020-11-28] MEDS: CLOPIDOGREL BISULFATE 75 MG TABLET PO SCH (08:27)
[2020-11-28] MEDS: FLUTICASONE/VILANTEROL 1 EACH BLST.W.DEV IH SCH (08:27)
[2020-11-28] MEDS: DULOXETINE HCL 30 MG CAPSULE.DR PO SCH (08:28)
[2020-11-28] MEDS: METOPROLOL SUCCINATE 25 MG TAB.SR.24H PO SCH (08:28)
[2020-11-28] MEDS: MIDODRINE HCL (5MG) 5 MG TABLET PO SCH ×2 (08:28→16:14)
[2020-11-28] MEDS: ARIPIPRAZOLE 5 MG TABLET PO SCH ×2 (08:28→16:14)
[2020-11-28] MEDS: MUPIROCIN OINT 2% 22 GM TUBE NS SCH ×2 (08:29→21:11)
[2020-11-28] MEDS: NICOTINE PATCH (14MG) 14 MG PATCH.TD24 TD SCH (08:29)
[2020-11-28] MEDS: HYDROCODONE/APAP 5/325MG TABLET PO PRN ×3 (08:49→22:29)
--- NOTE | 2020-11-28 08:49 | NUR ---
RN NOTE: PAIN PT C/O 06/22 GENERALIZED PAIN. REQUESTING NORCO PO. NORCO PO PRN ADMINISTERED.
[2020-11-28 09:33] VITALS: BP 105/56
--- NOTE | 2020-11-28 14:37 | NUR ---
Phone call: SW and Director (Alina) spoke to the patient at bedside with phone conference at 1:40 pm coordinating discharge plan back to [facility]. Pt reports living at [address] [place] [phone] in a one bedroom. SW and Director informed the pt transportation is not provided and covered to [facility]. Pt is non cooperative when Director ask the pt alternative options and income to provide transportation. Plan : Per Director (Alina) Dr Hobbs discharge plan for the pt is cancelled for 11/29. hospitality services manager will be available upon request.
--- NOTE | 2020-11-28 14:50 | NUR ---
RN-CO: Notified Dr Hobbs regarding the "Writ of Habeas Corpus" Hearing tomm, 11/29/20 in am. School Custodian Noah made aware.
[2020-11-28 16:00] VITALS: BP 91/64
--- NOTE | 2020-11-28 16:15 | NUR ---
RN NOTE: PAIN PT C/O / GENERALIZED PAIN. REQUESTING NORCO. NORCO PO PRN ADMINISTERED.
[2020-11-28 20:06] VITALS: BP 102/53
[2020-11-28] MEDS: ATORVASTATIN 40 MG TABLET PO SCH (21:11)
--- NOTE | 2020-11-28 22:29 | NUR ---
GPS-RN NOTES: PATIENT C/O GENERALIZED PAIN ON A PAIN SCALE OF 7/10. ADMINISTERED NORCO 5/325MG PO ORDERED. WILL CONTINUE TO REASSESS.
[2020-11-29 08:00] VITALS: BP 100/53
[2020-11-29] MEDS: ASPIRIN EC 81 MG TABLET.DR PO SCH (08:04)
[2020-11-29] MEDS: HYDROCODONE/APAP 5/325MG TABLET PO PRN ×3 (08:04→19:45)
[2020-11-29] MEDS: PANTOPRAZOLE 40 MG/PACK PACK PO SCH (08:04)
[2020-11-29] MEDS: DULOXETINE HCL 30 MG CAPSULE.DR PO SCH (08:04)
[2020-11-29] MEDS: CLOPIDOGREL BISULFATE 75 MG TABLET PO SCH (08:04)
--- NOTE | 2020-11-29 08:05 | NUR ---
GPS-RN NOTES: PATIENT C/O GENERALIZED PAIN ON A PAIN SCALE OF 7/10. ADMINISTERED NORCO 5/325MG PO ORDERED. WILL CONTINUE TO REASSESS.
[2020-11-29] MEDS: CARBIDOPA/LEVODOPA 25/100 MG 1 UDTAB PO SCH ×3 (08:06→16:26)
[2020-11-29] MEDS: ARIPIPRAZOLE 5 MG TABLET PO SCH ×2 (08:06→16:25)
[2020-11-29] MEDS: MIDODRINE HCL (5MG) 5 MG TABLET PO SCH ×2 (08:06→16:25)
[2020-11-29] MEDS: METOPROLOL SUCCINATE 25 MG TAB.SR.24H PO SCH (08:07)
[2020-11-29] MEDS: NICOTINE PATCH (14MG) 14 MG PATCH.TD24 TD SCH (08:10)
[2020-11-29] MEDS: FUROSEMIDE 20 MG TABLET PO SCH (08:10)
[2020-11-29] MEDS: FLUTICASONE/VILANTEROL 1 EACH BLST.W.DEV IH SCH (08:11)
[2020-11-29] MEDS: MUPIROCIN OINT 2% 22 GM TUBE NS SCH ×2 (08:11→21:32)
--- NOTE | 2020-11-29 14:42 | NUR ---
GPS-RN NOTES: PATIENT C/O GENERALIZED PAIN ON A PAIN SCALE OF 7/10. ADMINISTERED NORCO 5/325MG PO ORDERED. WILL CONTINUE TO REASSESS.
--- NOTE | 2020-11-29 15:34 | NUR ---
Phone call: SW spoke to APS budget manager (Trish- [phone] [place]) via phone at 325pm regarding the pt. SW discussed the pt's discharge planning once the pt medically discharge for the hospital. SW also reviewed pt's current status and mental state. Plan: patient financial services coordinator to find appropriate and safe placement for the patient. patient financial services coordinator to follow up with APS budget manager (Rik[place]apolo- [phone]) regarding discharge plan.
[2020-11-29 16:00] VITALS: BP 104/63
--- NOTE | 2020-11-29 19:45 | NUR ---
NURSES NOTES: PATIENT COMPLAINED OF PAIN ON HIS LEFT SHOULDER, LOWER BACK AND BILATERAL KNEES WITH A SCORE OF 10/10 NORCO 5/325 MG GIVEN ORALLY ORDERED. WILL CONTINUE TO MONITOR PATIENT AND HIS PAIN LEVEL.
[2020-11-29 20:20] VITALS: BP 105/71
[2020-11-29] MEDS: ATORVASTATIN 40 MG TABLET PO SCH (21:32)
[2020-11-30] MEDS: HYDROCODONE/APAP 5/325MG TABLET PO PRN ×5 (00:46→21:52)
--- NOTE | 2020-11-30 06:58 | NUR ---
NURSES NOTES: PATIENT COMPLAINED OF GENERALIZED BODY PAIN / BP CHECKED 120/72 HR-69. NORCO 5/325 MG GIVEN ORALLY. WILL MONITOR PATIENT'S PAIN LEVEL AND EFFICACY OF MEDICATION.
[2020-11-30 08:00] VITALS: BP 110/67
[2020-11-30] MEDS: PANTOPRAZOLE 40 MG/PACK PACK PO SCH (08:01)
[2020-11-30] MEDS: FUROSEMIDE 20 MG TABLET PO SCH ×2 (09:00→09:33)
[2020-11-30] MEDS: MIDODRINE HCL (5MG) 5 MG TABLET PO SCH ×3 (09:00→16:51)
[2020-11-30] MEDS: NICOTINE PATCH (14MG) 14 MG PATCH.TD24 TD SCH (09:00)
[2020-11-30] MEDS: METOPROLOL SUCCINATE 25 MG TAB.SR.24H PO SCH ×2 (09:00→09:30)
[2020-11-30] MEDS: ARIPIPRAZOLE 5 MG TABLET PO SCH ×2 (09:30→16:51)
[2020-11-30] MEDS: CLOPIDOGREL BISULFATE 75 MG TABLET PO SCH (09:30)
[2020-11-30] MEDS: CARBIDOPA/LEVODOPA 25/100 MG 1 UDTAB PO SCH ×3 (09:30→16:51)
[2020-11-30] MEDS: DULOXETINE HCL 30 MG CAPSULE.DR PO SCH (09:30)
[2020-11-30] MEDS: ASPIRIN EC 81 MG TABLET.DR PO SCH (09:30)
[2020-11-30] MEDS: MUPIROCIN OINT 2% 22 GM TUBE NS SCH ×2 (09:35→22:07)
[2020-11-30] MEDS: FLUTICASONE/VILANTEROL 1 EACH BLST.W.DEV IH SCH (09:35)
[2020-11-30 16:00] VITALS: BP 93/63
[2020-11-30 20:05] VITALS: BP 100/55
[2020-11-30] MEDS: ATORVASTATIN 40 MG TABLET PO SCH (21:13)
[2020-12-01] MEDS: TEMAZEPAM 7.5 MG CAPSULE PO PRN (00:31)
[2020-12-01] MEDS: PANTOPRAZOLE 40 MG/PACK PACK PO SCH (07:47)
[2020-12-01 08:00] VITALS: BP 106/74
[2020-12-01] MEDS: DULOXETINE HCL 30 MG CAPSULE.DR PO SCH (09:01)
[2020-12-01] MEDS: ARIPIPRAZOLE 5 MG TABLET PO SCH ×2 (09:01→16:26)
[2020-12-01] MEDS: CARBIDOPA/LEVODOPA 25/100 MG 1 UDTAB PO SCH ×3 (09:02→16:26)
[2020-12-01] MEDS: ASPIRIN EC 81 MG TABLET.DR PO SCH (09:02)
[2020-12-01] MEDS: CLOPIDOGREL BISULFATE 75 MG TABLET PO SCH (09:02)
[2020-12-01] MEDS: FUROSEMIDE 20 MG TABLET PO SCH (09:02)
[2020-12-01] MEDS: NICOTINE PATCH (14MG) 14 MG PATCH.TD24 TD SCH (09:03)
[2020-12-01] MEDS: MIDODRINE HCL (5MG) 5 MG TABLET PO SCH ×2 (09:03→16:26)
[2020-12-01] MEDS: METOPROLOL SUCCINATE 25 MG TAB.SR.24H PO SCH (09:03)
[2020-12-01] MEDS: FLUTICASONE/VILANTEROL 1 EACH BLST.W.DEV IH SCH (09:05)
[2020-12-01] MEDS: MUPIROCIN OINT 2% 22 GM TUBE NS SCH ×2 (09:06→21:33)
[2020-12-01 16:00] VITALS: BP 117/74
[2020-12-01 20:52] VITALS: BP 123/70
[2020-12-01] MEDS: ATORVASTATIN 40 MG TABLET PO SCH (21:33)
[2020-12-01] MEDS: HYDROCODONE/APAP 5/325MG TABLET PO PRN (21:34)
--- NOTE | 2020-12-01 21:35 | NUR ---
Pt c/o generalized body pain 03/22. [place] 5/325 mg po given as ordered. Will continue to monitor.
--- NOTE | 2020-12-01 23:03 | NUR ---
Post 1 hr [place] PRN effective. TX 0/10. Pt asleep in bed easy to arouse. Frequent visual check done for safety. Will continue to monitor.
--- NOTE | 2020-12-02 07:08 | NUR ---
GPS RN OPENING NOTES RECEIVED PATIENT AWAKE IN BED, AOX2-3. NO SOB NOTED. NO S/S OF DISTRESS.BREATHING UNLABORED. PT DENIES SI/HI. PT REMAINS CALM, RELAXED AND COOPERATIVE.PT IS MED COMPLIANT. BED IN LOWEST LOCKED POSITION, HOB ELEVATED, SIDE RAILS UPX2, CALL LIGHT AND TABLE WITHIN REACH. WILL CONTINUE TO MONITOR Q 15 MIN FOR SAFETY, MOOD & BEHAVIOR
[2020-12-02 08:00] VITALS: BP 111/57
[2020-12-02] MEDS: FUROSEMIDE 20 MG TABLET PO SCH (09:30)
[2020-12-02] MEDS: CARBIDOPA/LEVODOPA 25/100 MG 1 UDTAB PO SCH ×3 (09:30→16:24)
[2020-12-02] MEDS: ARIPIPRAZOLE 5 MG TABLET PO SCH ×2 (09:30→16:25)
[2020-12-02] MEDS: DULOXETINE HCL 30 MG CAPSULE.DR PO SCH (09:30)
[2020-12-02] MEDS: ASPIRIN EC 81 MG TABLET.DR PO SCH (09:30)
[2020-12-02] MEDS: CLOPIDOGREL BISULFATE 75 MG TABLET PO SCH (09:31)
[2020-12-02] MEDS: PANTOPRAZOLE 40 MG/PACK PACK PO SCH (09:31)
[2020-12-02] MEDS: MIDODRINE HCL (5MG) 5 MG TABLET PO SCH ×2 (09:31→16:24)
[2020-12-02] MEDS: NICOTINE PATCH (14MG) 14 MG PATCH.TD24 TD SCH (09:32)
[2020-12-02] MEDS: METOPROLOL SUCCINATE 25 MG TAB.SR.24H PO SCH (09:34)
[2020-12-02] MEDS: FLUTICASONE/VILANTEROL 1 EACH BLST.W.DEV IH SCH (09:52)
[2020-12-02] MEDS: MUPIROCIN OINT 2% 22 GM TUBE NS SCH ×2 (09:52→21:31)
[2020-12-02] MEDS: HYDROCODONE/APAP 5/325MG TABLET PO PRN ×2 (10:15→17:42)
--- NOTE | 2020-12-02 10:17 | NUR ---
PT C/O OF ACHING BACK PAIN OF 6/10. PT NOTED GRIMACING VS WNL. PER PT REQUEST NORCO 5-325MG PO Q4H PRN FOR PAIN ADMINISTERED AT THIS TIME. WILL CONTINUE TO MONITOR
--- NOTE | 2020-12-02 13:32 | NUR ---
Point of Contact: YANELIS called the pts friend, Michelle ([phone]), who stated that she wanted to be informed as to why the pt was admitted to the hospital. She stated that she has known this pt for years and does not believe that he would take his life. She stated that the pt always wants to return to [place] and be with his family but he does not have contact with them. Pts friend believes that if discharged he would not go to [place] and that he would make it back to the [facility] where they have their AA meetings. YANELIS stated that she will keep her updated in the plan.
[2020-12-02 16:00] VITALS: BP 95/57
--- NOTE | 2020-12-02 17:42 | NUR ---
PT C/O OF ACHING BACK PAIN OF 7/10. PT NOTED WITH FACIAL GRIMACE AND MOANING. VS 110/64, HR 68, RR 20, T 98.0, SPO2 96%. PER PT REQUEST NORCO 5-325MG PO Q4H PRN FOR PAIN ADMINISTERED AT THIS TIME. WILL CONTINUE TO MONITOR
--- NOTE | 2020-12-02 18:59 | NUR ---
GPS RN CLOSING NOTES PT IN DINNING ROOM WATCHING TV AT THIS TIME. PT REMAINED STABLE THROUGH OUT SHIFT. ALL CARE, NEEDS, MEDICATIONS AND TREATMENT ADMINISTERED ANTICIPATED PER ORDER. PT KEPT CLEAN AND DRY. WILL ENDORSE TO DIMPLING MACHINE OPERATOR NURSE TO CONTINUE TO MONITOR Q 15 MIN FOR SAFETY, MOOD & BEHAVIOR
[2020-12-02 21:21] VITALS: BP 104/62
[2020-12-02] MEDS: clonazePAM 0.5 MG TABLET PO PRN (21:31)
[2020-12-02] MEDS: TEMAZEPAM 7.5 MG CAPSULE PO PRN (21:31)
[2020-12-02] MEDS: ATORVASTATIN 40 MG TABLET PO SCH (21:31)
[2020-12-03 08:00] VITALS: BP 107/58
[2020-12-03] MEDS: PANTOPRAZOLE 40 MG/PACK PACK PO SCH (08:55)
[2020-12-03] MEDS: ARIPIPRAZOLE 5 MG TABLET PO SCH ×2 (08:55→16:58)
[2020-12-03] MEDS: ASPIRIN EC 81 MG TABLET.DR PO SCH (08:55)
[2020-12-03] MEDS: MIDODRINE HCL (5MG) 5 MG TABLET PO SCH ×2 (08:56→16:58)
[2020-12-03] MEDS: CARBIDOPA/LEVODOPA 25/100 MG 1 UDTAB PO SCH ×3 (08:56→16:58)
[2020-12-03] MEDS: FUROSEMIDE 20 MG TABLET PO SCH (08:57)
[2020-12-03] MEDS: DULOXETINE HCL 30 MG CAPSULE.DR PO SCH (08:57)
[2020-12-03] MEDS: CLOPIDOGREL BISULFATE 75 MG TABLET PO SCH (08:58)
[2020-12-03] MEDS: MUPIROCIN OINT 2% 22 GM TUBE NS SCH ×2 (08:59→21:57)
[2020-12-03] MEDS: METOPROLOL SUCCINATE 25 MG TAB.SR.24H PO SCH (08:59)
[2020-12-03] MEDS: FLUTICASONE/VILANTEROL 1 EACH BLST.W.DEV IH SCH (08:59)
[2020-12-03] MEDS: NICOTINE PATCH (14MG) 14 MG PATCH.TD24 TD SCH (09:00)
[2020-12-03 11:54] LABS: BASOPHILS % (AUTO) 0.7 % (0.0-2.0); EOSINOPHILS % (AUTO) 2.5 % (0.0-6.0); HEMATOCRIT 37 % (39-51); LYMPHOCYTES # (AUTO) 1.5 /CMM (0.8-4.8); LYMPHOCYTES % (AUTO) 37.3 % (20.0-44.0); MEAN CORPUSCULAR HGB CONC 33 g/dl (31.0-36.0); MEAN CORPUSCULAR VOLUME 96 fL (80-96); MONOCYTES # (AUTO) 0.5 /CMM (0.1-1.30); MONOCYTES % (AUTO) 12.8 % (2.0-12.0); NEUTROPHILS # (AUTO) 1.9 /CMM (1.8-8.9); NEUTROPHILS % (AUTO) 46.7 % (43.0-81.0); PLATELET COUNT (AUTO) 272 /CMM (150-450); RED BLOOD CELL COUNT(AUTO) 3.83 MIL/uL (4.5-6.0); WHITE BLOOD COUNT (AUTO) 4.1 K/uL (4.3-11.0)
[2020-12-03 12:06] LABS: CALCIUM, SERUM 9.1 mg/dL (8.5-10.1); POTASSIUM 3.7 mmol/L (3.5-5.1)
[2020-12-03 12:21] LABS: THYROID STIMULATING HORMONE 0.698 uIU/mL (0.358-3.74)
[2020-12-03] MEDS: HYDROCODONE/APAP 5/325MG TABLET PO PRN ×2 (12:42→16:59)
--- NOTE | 2020-12-03 14:13 | NUR ---
NURSES NOTES: PATIENT COMPLAINED OF GENERALIZED BODY PAIN NORCO 5/325 MG GIVEN ORALLY. WILL MONITOR PATIENT'S PAIN LEVEL AND EFFICACY OF MEDICATION.
[2020-12-03 16:00] VITALS: BP 118/57
--- NOTE | 2020-12-03 17:05 | NUR ---
NURSES NOTES: PATIENT COMPLAINED OF GENERALIZED BODY PAIN 9/10 NORCO 5/325 MG GIVEN ORALLY. WILL MONITOR PATIENT'S PAIN LEVEL AND EFFICACY OF MEDICATION.
[2020-12-03 21:04] VITALS: BP 96/63
[2020-12-03] MEDS: ATORVASTATIN 40 MG TABLET PO SCH (21:57)
[2020-12-03] MEDS: clonazePAM 0.5 MG TABLET PO PRN (21:57)
[2020-12-03] MEDS: TEMAZEPAM 7.5 MG CAPSULE PO PRN (21:57)
[2020-12-04 08:00] VITALS: BP 99/54
[2020-12-04] MEDS: ARIPIPRAZOLE 5 MG TABLET PO SCH ×2 (08:33→16:09)
[2020-12-04] MEDS: PANTOPRAZOLE 40 MG/PACK PACK PO SCH (08:33)
[2020-12-04] MEDS: FUROSEMIDE 20 MG TABLET PO SCH (08:34)
[2020-12-04] MEDS: MIDODRINE HCL (5MG) 5 MG TABLET PO SCH ×2 (08:34→16:08)
[2020-12-04] MEDS: CLOPIDOGREL BISULFATE 75 MG TABLET PO SCH (08:34)
[2020-12-04] MEDS: CARBIDOPA/LEVODOPA 25/100 MG 1 UDTAB PO SCH ×3 (08:35→16:09)
[2020-12-04] MEDS: DULOXETINE HCL 30 MG CAPSULE.DR PO SCH (08:35)
[2020-12-04] MEDS: METOPROLOL SUCCINATE 25 MG TAB.SR.24H PO SCH (08:35)
[2020-12-04] MEDS: MUPIROCIN OINT 2% 22 GM TUBE NS SCH ×2 (08:36→21:26)
[2020-12-04] MEDS: ASPIRIN EC 81 MG TABLET.DR PO SCH (08:41)
[2020-12-04] MEDS: FLUTICASONE/VILANTEROL 1 EACH BLST.W.DEV IH SCH (08:50)
[2020-12-04] MEDS: NICOTINE PATCH (14MG) 14 MG PATCH.TD24 TD SCH (08:51)
[2020-12-04] MEDS: HYDROCODONE/APAP 5/325MG TABLET PO PRN ×3 (09:43→21:24)
[2020-12-04 16:00] VITALS: BP 105/55
[2020-12-04] MEDS ORDERED: ARIPIPRAZOLE 5 MG TABLET PO SCH (17:00)
[2020-12-04 20:58] VITALS: BP 102/58
[2020-12-04] MEDS: ATORVASTATIN 40 MG TABLET PO SCH (21:25)
[2020-12-04] MEDS: TEMAZEPAM 7.5 MG CAPSULE PO PRN (23:47)
[2020-12-05] MEDS: HYDROCODONE/APAP 5/325MG TABLET PO PRN ×5 (02:27→21:50)
--- NOTE | 2020-12-05 02:32 | NUR ---
stock letterer notes patient woke up and seen using his wheelchair asking for pain medication , norco tablet given po as ordered for his pain on his shoulder. Educate the possible side effect and pt understood well. his back to his room using his wheelchair. will continue monitoring. .
--- NOTE | 2020-12-05 07:20 | NUR ---
MS ROAD OILER NOTES PT WOKE UP AND PUT HIM BACK TO HIS WHEELCHAIR. HE'S CALMED AND COOPERATIVE BUT STILL DISORGANIZE. HE'S CONCERN ABOUT HIS PAIN ON HIS SHOULDER AND WANTS TO SPEAK TO THE DOCTOR. STABLE MARIA GUADALUPE THE NIGHT. REFUSED TO CHANGE HIS JACKET . STILL NEEDS ASSISTANCE. KEPT HIM WARM AND COMFORTABLE AT ALL TIMES. WILL CONTINUE q 15 MINUTES MONITORING FOR SAFETY. WILL ENDORSE TO AM NURSE.
[2020-12-05 08:00] VITALS: BP 107/73
[2020-12-05] MEDS: PANTOPRAZOLE 40 MG/PACK PACK PO SCH (08:51)
[2020-12-05] MEDS: CLOPIDOGREL BISULFATE 75 MG TABLET PO SCH (08:51)
[2020-12-05] MEDS: DULOXETINE HCL 30 MG CAPSULE.DR PO SCH (08:51)
[2020-12-05] MEDS: FUROSEMIDE 20 MG TABLET PO SCH (08:52)
[2020-12-05] MEDS: CARBIDOPA/LEVODOPA 25/100 MG 1 UDTAB PO SCH ×3 (08:52→16:40)
[2020-12-05] MEDS: ASPIRIN EC 81 MG TABLET.DR PO SCH (08:52)
[2020-12-05] MEDS: ARIPIPRAZOLE 5 MG TABLET PO SCH ×2 (08:52→16:41)
[2020-12-05] MEDS: MIDODRINE HCL (5MG) 5 MG TABLET PO SCH ×2 (08:54→16:43)
[2020-12-05] MEDS: METOPROLOL SUCCINATE 25 MG TAB.SR.24H PO SCH (09:00)
[2020-12-05] MEDS: FLUTICASONE/VILANTEROL 1 EACH BLST.W.DEV IH SCH (09:00)
[2020-12-05] MEDS: NICOTINE PATCH (14MG) 14 MG PATCH.TD24 TD SCH (09:01)
[2020-12-05] MEDS: MUPIROCIN OINT 2% 22 GM TUBE NS SCH ×2 (09:02→21:05)
--- NOTE | 2020-12-05 15:05 | NUR ---
SNF Referral: YANELIS faxed a referral to [facility] with attn to Reena to the e fax number: [phone].
--- NOTE | 2020-12-05 15:40 | NUR ---
Individual Intervention: SW met with the pt in the hallway and he stated that he wanted to be discharged to the [facility] so that he can take the bus to [place]. Pt stated that he has over $3000 in his bank account and stated that he has family members there. Pt was unable to provide the SW with the contact information for the family members. SW informed the pt that the MD and the hospital would like to discharge the pt to SNF and the pt adamantly refused. Pt stated that he can make his own decisions and has been taking care of himself for years.
[2020-12-05 16:00] VITALS: BP 110/72
[2020-12-05 19:49] VITALS: BP 102/52
[2020-12-05 19:52] VITALS: BP 102/52
[2020-12-05] MEDS: ATORVASTATIN 40 MG TABLET PO SCH (21:31)
--- NOTE | 2020-12-05 21:54 | NUR ---
RN NOTE: PAIN PATIENT C/O GENERALIZED BODY PAIN 03/22, REQUESTING FOR NORCO, PRN NORCO 5-325 MG 1 TAB PO ADMINISTERED. WILL REASSESS THE PATIENT FOR EFFECTIVENESS.
[2020-12-06] MEDS: HYDROCODONE/APAP 5/325MG TABLET PO PRN ×2 (03:52→11:50)
--- NOTE | 2020-12-06 03:54 | NUR ---
RN NOTE: PAIN PATIENT C/O GENERALIZED BODY PAIN 5/10, REQUESTING FOR NORCO, PRN NORCO 5-325 MG 1 TAB PO ADMINISTERED. WILL REASSESS THE PATIENT FOR EFFECTIVENESS.
[2020-12-06 08:00] VITALS: BP 108/66
[2020-12-06] MEDS: CARBIDOPA/LEVODOPA 25/100 MG 1 UDTAB PO SCH ×2 (08:13→12:01)
[2020-12-06] MEDS: ASPIRIN EC 81 MG TABLET.DR PO SCH (08:13)
[2020-12-06] MEDS: DULOXETINE HCL 30 MG CAPSULE.DR PO SCH (08:13)
[2020-12-06] MEDS: FUROSEMIDE 20 MG TABLET PO SCH (08:13)
[2020-12-06] MEDS: ARIPIPRAZOLE 5 MG TABLET PO SCH (08:14)
[2020-12-06] MEDS: CLOPIDOGREL BISULFATE 75 MG TABLET PO SCH (08:14)
[2020-12-06 08:26] VITALS: BP 108/66
[2020-12-06] MEDS: PANTOPRAZOLE 40 MG/PACK PACK PO SCH (08:26)
[2020-12-06] MEDS: MIDODRINE HCL (5MG) 5 MG TABLET PO SCH (08:26)
[2020-12-06] MEDS: METOPROLOL SUCCINATE 25 MG TAB.SR.24H PO SCH (08:26)
[2020-12-06] MEDS: FLUTICASONE/VILANTEROL 1 EACH BLST.W.DEV IH SCH (08:27)
[2020-12-06] MEDS: MUPIROCIN OINT 2% 22 GM TUBE NS SCH (08:50)
[2020-12-06] MEDS: NICOTINE PATCH (14MG) 14 MG PATCH.TD24 TD SCH (09:00)
--- NOTE | 2020-12-06 09:46 | NUR ---
SNF Contact: Reena ([phone]) from [facility] contacted the SW and stated that the pt was accepted to their facility.
--- NOTE | 2020-12-06 09:53 | NUR ---
Point of Contact: SW called the pts friend, Michelle ([phone]), and left a voicemail stating that the SW would like to discuss the pts discharge plan.
--- NOTE | 2020-12-06 09:59 | NUR ---
SNF Referral: YANELIS faxed a referral to [facility] SNF with attn to Constantino and PHILIPP to the fax number: [phone].
--- NOTE | 2020-12-06 10:15 | NUR ---
SNF Contact: Rudolph ([phone]) at [facility] contacted the SW and stated that the pt was accepted to their facility.
--- NOTE | 2020-12-06 10:58 | NUR ---
Individual Intervention: SW met with the pt in the hallway with SW supervisor quality control, Alina Santiago. Pts discharge plan was discussed and pt was once again informed that he has been accepted to nursing facilities which allow him to have a bed, clothes, food, medication, and prison while receiving physical therapy. Pt denied the placement and stated that he wanted to be taken to the [facility] in [place] so that he can go to [place]. Pt states that he has $12,000 in the bank and was able to identify that he [place] with [employer] and was able to provide the cross streets of a [employer] near the hospital. Pt was also able to determine locations in [place] where he can reside. Pt showed the SW and the supervisor quality control how he can maneuver his own wheelchair. Pts nurse expressed concern of whether or not the pt can get on the [facility] Bus and the pt stated that he can get on the bus and has been on it in the past. In the case that he cannot pt states that he will go to the [facility] where he often resides. Plan: YANELIS will provide the pt with homeless resources upon discharge.
--- NOTE | 2020-12-06 11:26 | NUR ---
Discharge Note: Pt will be discharged to [facility] [place] [address] [place] [address]; . Pt will be discharged around 2PM. Pt will arrange his own plan of care and provided the SW with a plan of getting on the [employer] [facility] to a placement of his choosing and informed the SW that he has over $3000 in the bank. Pt was also able to state that the cross streets of where the closest [employer] was located from the hospital. Pt also stated that he has family in [place] but was unable to provide the SW with any contact information. SW informed him that he was accepted to two ch[facility] facilities called [facility] and [facility] but the pt adamantly refused placement. Upon discharge, pt appears to be in a euthymic mood and presents with a distressed affect. Pt is nonambulatory and requires wheelchair assistance. Pt has his own wheelchair. Pt appears to be alert and oriented x3 (time, place, self). Pt denies both suicidal and homicidal ideation as well as auditory and visual hallucinations. SW provided patient with the [facility] list. SW provided patient with a copy of the [facility] homeless directory which provides information on locations for hot meals, sack lunches, food pantries, and showers. SW provided an additional list of mental health clinics: [facility] [address] [place] [address] ([phone]); [facility] [address] [place] [address] ([phone]); a list of medical clinics; [facility] [address], [place]. [place], ; [facility] [address], [address], [place]. YANELIS Provided [facility] [address] [place] [address]: ([phone]). Patient was provided with a brief substance abuse intervention and referred to the following substance abuse programs: [facility] Substance Abuse Self-helpline ([phone]); [facility] [address] [place] [address] ([phone]); [facility] [address] [facility] [address] ([phone]); [facility] ([phone]); [facility] ([phone]); [facility] ([phone]); [facility] ([phone]). Pt was referred to [facility] for psychiatric services located at [address] [place] [address]; ; and a fax of records was sent to: . Pt was also referred to [facility] located at [address] [place] [address]; for medical assistance. Pt signed the homeless waiver and the multidisciplinary exit care form was done, printed, signed, and given to the patient.
--- NOTE | 2020-12-06 12:50 | NUR ---
CONSTRUCTION INSPECTOR NOTE PAIN: PATIENT C/O 6/10 BILATERAL LEG PAIN, REPOSITIONED FOR COMFORT HOWEVER NON EFFECTIVE FOR PAIN. PRN HYDROCODONE 5/325 MG GIVEN ORDERED @1150 AM. GIVEN AND TOLERATED WELL. REASSESSED PAIN @ 1250 PM AND PATIENT STATED NO PAIN AT THIS TIME. WILL CONTINUE TO MONITOR FOR PATIENT SAFETY.
== END 2020-12-06 14:05 | disposition home or self-care (01) | DRG 885 ==
LOC: GPS 18:42
PROVIDERS: ADMIT Psychiatry & Neurology Psychiatry; ATTEND Internal Medicine
DX: F29 Unspecified psychosis not due to a substance or known physiological condition (principal); I11.0 Hypertensive heart disease with heart failure; R45.851 Suicidal ideations; F23 Brief psychotic disorder; G93.49 Other encephalopathy; F32.9 Major depressive disorder, single episode, unspecified; J44.9 Chronic obstructive pulmonary disease, unspecified; E78.5 Hyperlipidemia, unspecified; G20 Parkinson's disease; I50.9 Heart failure, unspecified; I25.10 Atherosclerotic heart disease of native coronary artery without angina pectoris; Z73.6 Limitation of activities due to disability; M62.81 Muscle weakness (generalized); Z22.322 Carrier or suspected carrier of Methicillin resistant Staphylococcus aureus; Z87.891 Personal history of nicotine dependence
CPT/HCPCS: 36415; 80048-TC; 80061-TC; 82962-TC; 84443-TC; 85025-TC; 87081-TC; 97116-TC; 97530-TC